=== PATIENT | male | born 1940 | race Asian ===

== ENCOUNTER 2016-04-13 08:18 | Inpatient (IN) | payer OTHER ==
[2016-04-13] MEDS ORDERED: ALBUTEROL SO4 2.5/IPRATROPIUM 0.5 INH SOL 3 ML VIAL.NEB. NEB ONE ×3 (08:53→10:50)
[2016-04-13] MEDS ORDERED: methylPREDNISolone NA SUCC 125 MG/2 ML VIAL IVPB ONE (08:54)
--- NOTE | 2016-04-13 08:55 | PDOC ---
History of Present Illness <Trish Mayers - Last Filed: 04/13/16 10:50> - General History Source: Patient Exam Limitations: Language Barrier (translation provided by his benito becerra) - History of Present Illness Initial Comments: 04/13/16 08:54 76y M hx of CAD s/p CABG, asthma/copd, sent by PMD for evalutaion of cough. The pt states he has been coughing for 2 weeks, associated with mild nasal congestion, cough productive of whish sputum with yellow specks. Pt endorses mild substernal chest and b/l rib pain when he coughs. Pt denies any body aches , fever/chills, n/v, diarphoesis, abd pain, back pain, leg swelling, hemoptysis. No recent travel/sick contacts. +remote smoking history. pt saw his PMD yesterday who gave him rx for azithromycin pt states he has been using his albuterol every hour without significant relief <Topher Shotr - Last Filed: 04/13/16 13:13> - General Chief Complaint: Respiratory Stated Complaint: ASTHMA (PCP SENT) Time Seen by Provider: 04/13/16 08:40 Past History <Trish Mayers - Last Filed: 04/13/16 10:50> - Past Medical History Anemia: Yes Asthma: No Cancer: No Cardiac Disorders: Yes (CAD CABG 09/2012) CVA: No COPD: Yes CHF: No Dementia: No Diabetes: No GI Disorders: No Disorders: Yes (BPH) HTN: Yes Hypercholesterolemia: Yes Liver Disease: No Seizures: No Thyroid Disease: No - Surgical History Appendectomy: Yes Cardiac Surgery: Yes (CABG/ BYPASS SURGERY) - Immunization History Immunization Up to Date: Yes - Psycho/Social/Smoking Cessation Hx Anxiety: No Suicidal Ideation: No Smoking History: Former smoker Have you smoked in the past 12 months: Yes If you are a former smoker, when did you quit?: 10 months ago Information on smoking cessation initiated: No Hx Alcohol Use: No Drug/Substance Use Hx: No Substance Use Type: None Hx Substance Use Treatment: No <Topher Short - Last Filed: 04/13/16 13:13> - Past Medical History Allergies/Adverse Reactions: Allergies Allergy/AdvReac Type Severity Reaction Status Date / Time No Known Drug Allergies Allergy Verified 04/13/16 08:19 Home Medications: Ambulatory Orders Atorvastatin Ca [Lipitor] 20 mg PO DAILY 06/05/13 Losartan/Hydrochlorothiazide [Losartan-Hctz 50-12.5 mg Tab] 50 mg PO DAILY 06/05 Metoprolol Tartrate [Lopressor -] 25 mg PO BID 06/05/13 Albuterol Sulfate Inhaler - [Ventolin Hfa Inhaler -] 1 - 2 inh PO QID PRN Aspirin [ASA -] 81 mg PO DAILY 04/13/16 Fluticasone/Salmeterol [Advair 250-50 Diskus] 1 each IH PRN 04/13/16 Tiotropium [place] [Spiriva] 1 inh PO BID 04/13/16 Review of Systems - Review of Systems Able to Perform ROS?: Yes Comments:: 04/13/16 08:58 Constitutional - no reported Fever, Chills, weakness, HEENT: +nasal congestion no reported vision changes, sore throat Respiratory: +cough, sob, no reported hemoptysis Cardiac: +chest pain, no reported palpitations, light headedness, leg swelling Abd/GI: no reported abd pain, nausea, vomiting, blood per rectum, melena, diarrhea : no reported dysuria, frequency, discharge Musculskelatal - no reported back pain, joint swelling skin - no reported bruising, erythema, rash neurological: no reported headache, numbness, focal weakness, tingling, ataxia, weakness hematologic: no reported anemia, easy bruising, easy bleeding <Topher Short - Last Filed: 04/13/16 13:13> *Physical Exam - Vital Signs Last Vital Signs Temp Pulse Resp BP Pulse Ox 97.8 F 88 26 H 133/71 100 04/13/16 08:19 04/13/16 08:19 04/13/16 08:19 04/13/16 08:19 04/13/16 09:00 <Trish Mayers - Last Filed: 04/13/16 10:50> - Vital Signs Last Vital Signs Temp Pulse Resp BP Pulse Ox 97.8 F 88 26 H 133/71 95 04/13/16 08:19 04/13/16 08:19 04/13/16 08:19 04/13/16 08:19 04/13/16 08:19 - Physical Exam Comments: 04/13/16 09:00 GENERAL: The patient is awake, alert, and fully oriented, Nontoxic - in no acute distress. HEAD: Normocephalic, atraumatic. EYES: extraocular movements intact, sclera anicteric, conjunctiva clear. ENT: Normal voice, Moist mucous membranes. NECK: Normal range of motion, supple LUNGS: moderate respiratory distress, mildly tachypneic, diffuse wheezing, good air movement HEART: Regular rate and rhythm, normal S1 and S2 without murmur, rub or gallop. ABDOMEN: Soft, nontender, normoactive bowel sounds. No guarding, no rebound. No CVA tenderness EXTREMITIES: Normal range of motion, no edema, or calf tenderness, NEUROLOGICAL: No facial assymetry, Normal speech, moving all 4 extremities spontaneously PSYCH: Normal mood, normal affect. SKIN: Warm, Dry, normal turgor <Han,Topher - Last Filed: 04/13/16 13:13> Heart Score/ECG Review - History History: Slightly suspicious - Electrocardiogram EKG: Normal - Age Age: >/= 65 - Risk Factors Risk Factors Heart Score: Yes Hx Hypercholesterolemia, Yes Hx Hypertension, Yes Positive family hx of cardiac disease Based on the list above the patient has:: >/=3 risk factors or Hx atherosclerotic disease - Troponin Troponin: </= normal limit - Score Heart Score - Total: 4 - ECG Impressions Comment:: 04/13/16 11:49 Twelve-lead EKG was performed and reviewed by me. There is normal sinus rhythm with a normal rate. Rate of 79 The axis is normal. The intervals are normal. There is normal R wave progression There are no ST or T wave abnormalities. Impression: Normal twelve-lead EKG <Han,Topher - Last Filed: 04/13/16 13:13> ED Treatment Course - LABORATORY CBC & Chemistry Diagram: 04/13/16 09:15 04/13/16 09:15 - ADDITIONAL ORDERS Additional order review: Laboratory Results 04/13/16 04/13/16 04/13/16 09:15 09:15 09:15 Sodium 144 Potassium 4.1 Chloride 111 H Carbon Dioxide 27 Anion Gap 6 L BUN 19 H D Creatinine 1.2 D Creat Clearance w eGFR 58.71 Random Glucose 92 Calcium 9.1 Total Bilirubin 0.4 AST 18 D ALT 20 D Alkaline Phosphatase 82 D Creatine Kinase 205 D Creatine Kinase Index 2.1 CK-MB (CK-2) 4.414 H CK-MB (CK-2) Rel Index Cancelled Troponin I < 0.02 Total Protein 7.0 D Albumin 3.9 D 04/13/16 08:00 Influenza Types A,B Antigen (GUILLERMO) - Final Nasopharyngeal Swab - Final 04/13/16 09:15 RBC 3.79 L MCV 99.9 H MCHC 33.1 RDW 14.2 MPV 8.9 Neutrophils % 55.9 Lymphocytes % 15.6 D Monocytes % 8.8 Eosinophils % 18.8 H Basophils % 0.9 - RADIOLOGY Radiograph Interpretation: 04/13/16 10:50 Chest x-ray PA and lateral. Since 03/07/2014, the cardiac silhouette remains within normal limits in size. Patient status post median sternotomy. Right apical pleural thickening again seen with interval increase interstitial scarring and thickening in the right lung apex since see prior examination. Minimal blunting of the right costophrenic angle again seen. Mediastinum and visualized osseous structures appear intact IMPRESSION: Interval increase interstitial scarring and atelectatic changes in the right lung apex since the prior exam without definite infiltrates. Correlate clinically for further evaluation and follow-up. Reported By: Chinedu Solis MD 04/13/16 1020 - Medications Given in the ED: ED Medications Discontinued Medications Generic Name Dose Route Start Last Admin Trade Name Freq PRN Reason Stop Dose Admin Albuterol/Ipratropium 1 amp 04/13/16 08:53 04/13/16 09:17 Duoneb - NEB 04/13/16 08:54 1 amp ONCE ONE Administration Methylprednisolone Sodium Succinate 125 mg 04/13/16 08:54 04/13/16 09:17 Solu-Medrol - IVPB 04/13/16 08:55 125 mg ONCE ONE Administration <Trish Mayers - Last Filed: 04/13/16 10:50> - LABORATORY CBC & Chemistry Diagram: 04/13/16 09:15 04/13/16 09:15 <Topher Short - Last Filed: 04/13/16 13:13> Medical Decision Making - Medical Decision Making 04/13/16 09:04 76-year-old gentleman history of CAD, asthma/COPD presenting with 2 weeks of cough, nasal congestion productive of whitish sputum flecked with yellow spots, without any fevers, chills - was seen by PMD yesterday and referred to the emergency department for evaluation. Suspect asthma exacerbated by URI/influenza Will check some basic blood work, chest x-ray will treat the patient symptomatically with steroids, Will reassess 04/13/16 13:12 pt admitted for asthma exacerbation pt still hypoxic to low 90s still diffuse wheezing - in no distress cxr without any infiltrates case d/w dr. Sheldon barragan with admission stable for admissio to med/surg Case discussed in detail with admitting physician including history, physical exam and ancillary studies. Admitting physician has assumed care for the patient, will follow all pending diagnostics and will complete the evaluation and treatment. <Topher Short - Last Filed: 04/13/16 13:13> *DC/Admit/Observation/Transfer <Trish Mayers - Last Filed: 04/13/16 10:50> - Discharge Dispostion Admit: Yes <Topher Short - Last Filed: 04/13/16 13:13> Diagnosis at time of Disposition: Asthma exacerbation - Discharge Dispostion Condition at time of disposition: Stable - Referrals
[2016-04-13] MEDS ORDERED: methylPREDNISolone NA SUCC 125 MG/2 ML VIAL ONE (09:03)
[2016-04-13 09:52] LABS: BASOPHIL 0.9 % (0-2.0); EOSINOPHIL 18.8 % (0-4.5); MCHC 33.1 g/dl (32.0-35.9); MEAN CELL VOLUME 99.9 fl (80-96); MEAN PLT VOLUME 8.9 fl (7.5-11.1); NEUTROPHILS 55.9 % (42.8-82.8); PLATELET COUNT 174 K/MM3 (134-434); RDW 14.2 % (11.9-15.9); WHITE BLOOD COUNT 6.7 K/mm3 (4.0-10.0)
[2016-04-13 10:00] LABS: ALBUMIN 3.9 g/dl (3.4-5.0); BILIRUBIN,TOTAL 0.4 mg/dL (0.2-1.0); CALCIUM 9.1 mg/dL (8.5-10.1); CREATININE 1.2 mg/dL (0.7-1.3); TROPONIN I < 0.02 ng/ml (0.00-0.05)
[2016-04-13] MEDS ORDERED: MAGNESIUM SULF 50% (8.12 MEQ/2 ML-1 GM VIAL) IVPB ONE (11:12)
[2016-04-13] MEDS ORDERED: MAGNESIUM SULF 50% (8.12 MEQ/2 ML-1 GM VIAL) ONE (11:15)
[2016-04-13] MEDS ORDERED: IPRATROPIUM BR 0.02% 0.5 MG/2.5 ML VIAL.NEB. NEB PRN (13:05)
--- NOTE | 2016-04-13 13:21 | HP ---
Admitting History and Physical - Admission Chief Complaint: dyspnea History of Present Illness: 76 year old male with a PMHx CAD s/p CABG, HTN, HLD, asthma presents with a 1-2 week history of progressively worsening shortness of breath and wheezing. He went to PCP, Dr. Blackburn in the [place], a few days ago and was given zpak. He took one dose yesterday and was requiring his albuterol every hour. He is coughing up white sputum, afebrile, no sick contacts. No chest pain, abdominal pain, n/v/ d, fever/chills. No recent travel. He does have some rib pain when coughing. History Source: Patient, Family Member Limitations to Obtaining History: Language Barrier - Past Medical History Cardiovascular: Yes: CAD, HTN, Hyperlipdemia Pulmonary: Yes: Asthma - Past Surgical History Past Surgical History: Yes: Appendectomy, CABG, Stent - Smoking History Smoking history: Former smoker Have you smoked in the past 12 months: Yes If you are a former smoker, when did you quit?: 10 months ago - Alcohol/Substance Use Hx Alcohol Use: No History of Substance Use: reports: None - Social History Usual Living Arrangement: Yes: With Spouse ADL: Independent Occupation: retired History of Recent Travel: No Home Medications - Allergies Allergies/Adverse Reactions: Allergies Allergy/AdvReac Type Severity Reaction Status Date / Time No Known Drug Allergies Allergy Verified 04/13/16 08:19 - Home Medications Home Medications: Ambulatory Orders Atorvastatin Ca [Lipitor] 20 mg PO DAILY 06/05/13 Losartan/Hydrochlorothiazide [Losartan-Hctz 50-12.5 mg Tab] 50 mg PO DAILY 06/05 Metoprolol Tartrate [Lopressor -] 25 mg PO BID 06/05/13 Albuterol Sulfate Inhaler - [Ventolin Hfa Inhaler -] 1 - 2 inh PO QID PRN Aspirin [ASA -] 81 mg PO DAILY 04/13/16 Fluticasone/Salmeterol [Advair 250-50 Diskus] 1 each IH PRN 04/13/16 Tiotropium [place] [Spiriva] 1 inh PO BID 04/13/16 Family Disease History - Family Disease History Family History: Denies Review of Systems - Review of Systems Constitutional: reports: No Symptoms Eyes: reports: No Symptoms HENT: reports: No Symptoms Neck: reports: No Symptoms Cardiovascular: reports: No Symptoms Respiratory: reports: Cough, SOB, SOB on Exertion, Wheezing Gastrointestinal: reports: No Symptoms Genitourinary: reports: No Symptoms Musculoskeletal: reports: No Symptoms Integumentary: reports: No Symptoms Neurological: reports: No Symptoms Endocrine: reports: No Symptoms Hematology/Lymphatic: reports: No Symptoms Psychiatric: reports: No Symptoms Physical Examination Vital Signs: Vital Signs Temperature 97.8 F 04/13/16 08:19 Pulse Rate 88 04/13/16 08:19 Respiratory Rate 26 H 04/13/16 08:19 Blood Pressure 133/71 04/13/16 08:19 O2 Sat by Pulse Oximetry (%) 100 04/13/16 09:00 Constitutional: Yes: Well Nourished, No Distress, Calm HENT: Yes: WNL, Atraumatic, Normocephalic Neck: Yes: WNL, Supple, Trachea Midline Cardiovascular: Yes: WNL, Regular Rate and Rhythm Respiratory: Yes: Cough, Poor Air Entry, SOB on Exertion, Wheezes. No: Accessory Muscle Use Gastrointestinal: Yes: WNL, Normal Bowel Sounds, Soft Musculoskeletal: Yes: WNL Extremities: Yes: WNL Edema: No Peripheral Pulses WNL: Yes ...Motor Strength: WNL Labs: Laboratory Tests 04/13/16 04/13/16 04/13/16 09:15 09:15 09:15 WBC 6.7 D RBC 3.79 L Hgb 12.5 Hct 37.8 MCV 99.9 H MCHC 33.1 RDW 14.2 Plt Count 174 MPV 8.9 Neutrophils % 55.9 Lymphocytes % 15.6 D Monocytes % 8.8 Eosinophils % 18.8 H Basophils % 0.9 Sodium 144 Potassium 4.1 Chloride 111 H Carbon Dioxide 27 Anion Gap 6 L BUN 19 H D Creatinine 1.2 D Creat Clearance w eGFR 58.71 Random Glucose 92 Calcium 9.1 Total Bilirubin 0.4 AST 18 D ALT 20 D Alkaline Phosphatase 82 D Creatine Kinase 205 D Creatine Kinase Index 2.1 CK-MB (CK-2) 4.414 H CK-MB (CK-2) Rel Index Troponin I < 0.02 Total Protein 7.0 D Albumin 3.9 D 04/13/16 09:15 WBC RBC Hgb Hct MCV MCHC RDW Plt Count MPV Neutrophils % Lymphocytes % Monocytes % Eosinophils % Basophils % Sodium Potassium Chloride Carbon Dioxide Anion Gap BUN Creatinine Creat Clearance w eGFR Random Glucose Calcium Total Bilirubin AST ALT Alkaline Phosphatase Creatine Kinase Creatine Kinase Index CK-MB (CK-2) CK-MB (CK-2) Rel Index Cancelled Troponin I Total Protein Albumin Imaging - Results Chest X-ray: Report Reviewed, Image Reviewed EKG: Report Reviewed, Image Reviewed (NSR, no ischemic changes) Problem List - Problems (1) Asthma exacerbation Code(s): J45.901 - UNSPECIFIED ASTHMA WITH (ACUTE) EXACERBATION Assessment/Plan 76 year old male with a PMHx CAD s/p CABG, HTN, HLD, asthma presents with progressively worsening dyspnea and cough. 1) Asthma exacerbation -place on IV steroids -inhaled bronchodilators -mucolytics/expectorants -c/w azithromycin -check peak flow -pulm eval -flu negative 2) CAD s/p CABG-resume asa/statin/keesha/bb 3) HTN-resume home meds 4) HLD-resume statin 5) DVT ppx-heparin subq
[2016-04-13] MEDS ORDERED: ALBUTEROL SO4 0.083% IH SOL 2.5 MG/3 ML VIAL.NEB. NEB ONE (14:00)
[2016-04-13] MEDS: ALBUTEROL SO4 0.083% IH SOL 2.5 MG/3 ML VIAL.NEB. NEB SCH ×3 (14:01→23:01)
[2016-04-13] MEDS: AZITHROMYCIN IVPB 250 MG in DEXTROSE 5%-WATER - 250 ML IVPB SCH (15:34)
--- NOTE | 2016-04-13 16:15 | EKG ---
Test Reason : Blood Pressure : / mmHG Vent. Rate : 079 BPM Atrial Rate : 079 BPM P-R Int : 158 ms QRS Dur : 086 ms QT Int : 382 ms P-R-T Axes : 076 034 037 degrees QTc Int : 438 ms NORMAL SINUS RHYTHM NORMAL ECG WHEN COMPARED WITH ECG OF 07-MAR-2014 15:45, VENT. RATE HAS INCREASED BY 28 BPM Confirmed by ORLY BA MD ([id number]) on 04/13/2016 4:15:06 PM Referred By: Confirmed By:ORLY BA MD
[2016-04-13] MEDS: guaiFENesin/D-METHORPHAN HB 10 ML UNIT-DOSE CUPS PO PRN (17:13)
[2016-04-13] MEDS: methylPREDNISolone NA SUCC 40 MG/1 ML VIAL IVPB SCH (17:13)
[2016-04-13 17:36] VITALS: BMI 23.1
[2016-04-13] MEDS ORDERED: PNEUMOC 13-VAL CONJ-DIP CRM/PF 0.5 ML DISP.SYRIN IM ONE (17:36)
[2016-04-13] MEDS ORDERED: PNEUMOCOCCAL 23 VACCINE 0.5 ML VIAL IM ONE (17:45)
[2016-04-13] MEDS: HEPARIN NA (PORCINE) 5,000 UNITS/ML 1ML VIAL SQ SCH (21:50)
[2016-04-13] MEDS: ATORVASTATIN CA 20 MG TABLET (FP) PO SCH (21:50)
[2016-04-13] MEDS: METOPROLOL TARTRATE 25 MG TABLET (FP) PO SCH (21:50)
[2016-04-14] MEDS: methylPREDNISolone NA SUCC 40 MG/1 ML VIAL IVPB SCH ×4 (01:45→21:57)
[2016-04-14] MEDS: ALBUTEROL SO4 0.083% IH SOL 2.5 MG/3 ML VIAL.NEB. NEB SCH ×2 (06:22→11:54)
[2016-04-14 08:03] LABS: BASOPHIL 0.1 % (0-2.0); MCH 32.8 pg (25.7-33.7); MCHC 32.9 g/dl (32.0-35.9); MEAN CELL VOLUME 99.6 fl (80-96); MEAN PLT VOLUME 9.2 fl (7.5-11.1); NEUTROPHILS 92.9 % (42.8-82.8); PLATELET COUNT 163 K/MM3 (134-434); WHITE BLOOD COUNT 11.8 K/mm3 (4.0-10.0)
[2016-04-14 08:22] LABS: ALBUMIN 3.8 g/dl (3.4-5.0); ANION GAP 10 (8-16); BILIRUBIN,TOTAL 0.5 mg/dL (0.2-1.0); CALCIUM 8.9 mg/dL (8.5-10.1); CO2 25 mmol/L (21-32); CREATININE 1.1 mg/dL (0.7-1.3); GLUCOSE,RANDOM 135 mg/dL (74-106); SGOT/AST 15 U/L (15-37); SGPT/ALT 20 U/L (12-78); TOT PROT 7.1 g/dl (6.4-8.2)
[2016-04-14 08:23] LABS: ALK PHOS 70 U/L (45-117)
[2016-04-14] MEDS ORDERED: PT OWN MED DRAWER 7, Y5N ONE (08:59)
[2016-04-14] MEDS: ASPIRIN 81 MG CHEWABLE TABLETS PO SCH (09:19)
[2016-04-14] MEDS: HEPARIN NA (PORCINE) 5,000 UNITS/ML 1ML VIAL SQ SCH ×2 (09:19→21:57)
[2016-04-14] MEDS: METOPROLOL TARTRATE 25 MG TABLET (FP) PO SCH ×2 (09:19→21:58)
[2016-04-14] MEDS: LOSARTAN 50MG/HCTZ 12.5MG 1 TAB (FP) PO SCH (09:19)
[2016-04-14] MEDS: AZITHROMYCIN IVPB 250 MG in DEXTROSE 5%-WATER - 250 ML IVPB SCH (09:20)
--- NOTE | 2016-04-14 13:14 | PN ---
Progress Note (short form) - Note Progress Note: PULMONARY CONSULTATION DICTATED 04/14/16 IMP COPD EXACERBATION URI R APICAL THICKENING ASHD S/P CABG HLD PLAN IV STEROIDS INHALED BRONCHODILATORS SUPPLEMENTAL O2 ANTIBIOTICS CHEST CT PFTS OUTPATIENT DR CARTAGENA Problem List - Problems (1) Asthma with COPD with exacerbation Code(s): J44.1 - CHRONIC OBSTRUCTIVE PULMONARY DISEASE W (ACUTE) EXACERBATION J45.901 - UNSPECIFIED ASTHMA WITH (ACUTE) EXACERBATION (2) ASHD (arteriosclerotic heart disease) Code(s): I25.10 - ATHSCL HEART DISEASE OF [place] CORONARY ARTERY W/O ANG PCTRS (3) S/P CABG (coronary artery bypass graft) Code(s): Z95.1 - PRESENCE OF AORTOCORONARY BYPASS GRAFT (4) HLD (hyperlipidemia) Code(s): E78.5 - HYPERLIPIDEMIA, UNSPECIFIED
--- NOTE | 2016-04-14 14:28 | CONS ---
DATE OF CONSULTATION: 04/14/2016 REFERRING PHYSICIAN: Alicia Webster MD HISTORY: History is obtained from the chart as well as patient's son. The patient is a 76-year-old Spanish male with past medical history of ASHD status post coronary bypass graft 1 year ago at [facility], hypertension, hyperlipidemia; longstanding history of tobacco use, quit approximately 10 months ago; asthma, COPD, admitted to [facility] complaining of increasing shortness of breath, cough, and bronchospasm. The patient apparently has 1- to 2-week history of becoming progressively more short of breath and wheezing. He went to his PMD a few days prior to this admission and was given a Z-Wilver. Apparently he took a dose 1 day prior to admission and it did not offer any improvement. He was still using his Albuterol inhaler every hour without any improvement. He also complained of cough productive of white sputum. He denied any fevers, chills, nausea, vomiting, diaphoresis. Denied any chest pain or palpitations. He presented to the emergency room with the above. In the ER he was felt to have acute asthma, COPD exacerbation. He was started on steroids and bronchodilators and transferred to the floor for further management. He denies any history of weight loss or night sweats. He does have a history of pneumonia during childhood, unsure which lung. Of note is on chest x-ray he is noted to have some apical scarring of the right upper lobe. PAST MEDICAL HISTORY: Again includes COPD, asthma, hyperlipidemia, hypertension, ASHD status post CABG 1 year ago. SOCIAL HISTORY: Born in [place], moved to the [place] greater than 20 years ago. Retired auto driver. History of tobacco use approximately 1 pack per day. He quit 10 months ago. MEDICATIONS PRIOR TO ADMISSION: Include Lipitor, losartan, Lopressor, albuterol, aspirin, Advair, and Spiriva. CURRENT MEDICATIONS: Include Solu-Medrol, Hyzaar, Zithromax, albuterol, Lopressor, Atrovent solution, Lipitor, and aspirin. REVIEW OF SYSTEMS: Positive cough. Positive bronchospasm. No chest pain. No palpitations. Positive dyspnea. No fevers, no chills, no nausea, no vomiting, no hemoptysis. PHYSICAL EXAMINATION: General: The patient is a well-developed, well-nourished male, awake, alert, in no acute distress. Vital Signs: He is afebrile. Blood pressure 129/ . Respiratory rate is 18, O2 saturation 95% on 2 L. HEENT: Head is normocephalic, atraumatic. Neck is supple. Heart: Regular. Normal S1, S2. Chest: Bilateral wheezes. Abdomen: Soft. Bowel sounds are positive. Extremities: No cyanosis or edema. LABORATORY: BUN 25, creatinine 1.1. WBC is 11.8, hemoglobin 12.6, hematocrit 38.3, with a platelet count of 163,000. There are 92 polys, 5 lymphs, and 1 mono. Chest x-ray: Increased interstitial scarring. Atelectatic changes of right apex since previous exam in 2013. IMPRESSION: 1. Chronic obstructive pulmonary disease with acute exacerbation. 2. Arteriosclerotic heart disease status post coronary artery bypass graft. 3. Right apical thickening. 4. Hyperlipidemia. PLAN: IV steroids, inhaled bronchodilators, antibiotic therapy, CT scan of the chest, supplemental O2. Check pulse oximetry prior to discharge to determine whether the patient requires home O2. PFTs as outpatient. RUBY CARTAGENA M.D. [id number]
[2016-04-14] MEDS: BUDESONIDE/FORMETEROL FUMARATE 160/4.5 mcg INHALER IH SCH ×2 (17:23→22:00)
[2016-04-14] MEDS: TIOTROPIUM BROMIDE 18 MCG/INH (DEVICE W/ 5 CAPSULES) IH SCH (17:24)
[2016-04-14] MEDS: ALBUTEROL SO4 0.083% IH SOL 2.5 MG/3 ML VIAL.NEB. NEB PRN ×2 (18:33→23:15)
--- NOTE | 2016-04-14 21:06 | PN ---
Progress Note, Physician - Current Medication List Current Medications: Active Medications Albuterol Sulfate (Ventolin 0.083% Nebulizer Soln -) 1 amp NEB Q4H PRN PRN Reason: SHORT OF BREATH/WHEEZING Last Admin: 04/14/16 18:33 Dose: 1 amp Aspirin (Asa -) 81 mg PO DAILY [facility] Last Admin: 04/14/16 09:19 Dose: 81 mg Atorvastatin Calcium (Lipitor -) 20 mg PO HS [facility] Last Admin: 04/13/16 21:50 Dose: 20 mg Budesonide/Formoterol Fumarate (Symbicort 160/4.5mcg -) 2 puff IH BID [facility] Last Admin: 04/14/16 17:23 Dose: 2 inh Guaifenesin (Robitussin Dm -) 10 ml PO Q6H PRN PRN Reason: COUGH Last Admin: 04/13/16 17:13 Dose: 10 ml HCTZ/Losartan Potassium (Hyzaar -) 1 tab PO DAILY [facility] Last Admin: 04/14/16 09:19 Dose: 1 tab Heparin Sodium (Porcine) (Heparin -) 5,000 unit SQ BID [facility] Last Admin: 04/14/16 09:19 Dose: 5,000 unit Azithromycin 250 mg/ Dextrose 250 mls @ 250 mls/hr IVPB DAILY [facility] Last Admin: 04/14/16 09:20 Dose: 250 mls/hr Methylprednisolone Sodium Succinate (Solu-Medrol -) 40 mg IVPB Q6H-IV [facility] Last Admin: 04/14/16 15:55 Dose: 40 mg Metoprolol Tartrate (Lopressor -) 25 mg PO BID [facility] Last Admin: 04/14/16 09:19 Dose: 25 mg Tiotropium [place] (Spiriva -) 1 puff IH DAILY [facility] Last Admin: 04/14/16 17:24 Dose: 1 inh - Objective Vital Signs: Vital Signs Temperature 97.9 F 04/14/16 17:47 Pulse Rate 81 04/14/16 17:47 Respiratory Rate 20 04/14/16 17:47 Blood Pressure 124/78 04/14/16 17:47 O2 Sat by Pulse Oximetry (%) 97 04/14/16 09:00 Labs: CBC, BMP 04/14/16 06:40 04/14/16 06:40
[2016-04-14] MEDS: ATORVASTATIN CA 20 MG TABLET (FP) PO SCH (21:58)
[2016-04-15] MEDS: methylPREDNISolone NA SUCC 40 MG/1 ML VIAL IVPB SCH ×3 (02:35→17:23)
[2016-04-15] MEDS ORDERED: PT OWN MED DRAWER 7, Y5N ONE (09:17)
[2016-04-15] MEDS: AZITHROMYCIN IVPB 250 MG in DEXTROSE 5%-WATER - 250 ML IVPB SCH (09:26)
[2016-04-15] MEDS: METOPROLOL TARTRATE 25 MG TABLET (FP) PO SCH ×2 (09:26→21:01)
[2016-04-15] MEDS: HEPARIN NA (PORCINE) 5,000 UNITS/ML 1ML VIAL SQ SCH ×2 (09:26→21:01)
[2016-04-15] MEDS: ASPIRIN 81 MG CHEWABLE TABLETS PO SCH (09:27)
[2016-04-15] MEDS: LOSARTAN 50MG/HCTZ 12.5MG 1 TAB (FP) PO SCH (09:27)
[2016-04-15] MEDS: BUDESONIDE/FORMETEROL FUMARATE 160/4.5 mcg INHALER IH SCH ×2 (09:28→21:01)
[2016-04-15] MEDS: TIOTROPIUM BROMIDE 18 MCG/INH (DEVICE W/ 5 CAPSULES) IH SCH (09:28)
--- NOTE | 2016-04-15 11:18 | PN ---
Progress Note (short form) - Note Progress Note: Still with congested cough. No CP. at the bedside. She pointed out a slight redness of his forehead. No hives or rash. Intake & Output 04/12/16 04/13/16 04/14/16 04/15/16 23:59 23:59 23:59 23:59 Intake Total 480 800 100 Balance 480 800 100 Weight 147 lb 11.355 oz Last Vital Signs Temp Pulse Resp BP Pulse Ox 97.6 F 72 20 118/67 98 04/15/16 06:00 04/15/16 06:00 04/15/16 06:00 04/15/16 06:00 04/14/16 21:00 Active Medications Albuterol Sulfate (Ventolin 0.083% Nebulizer Soln -) 1 amp NEB Q4H PRN PRN Reason: SHORT OF BREATH/WHEEZING Last Admin: 04/14/16 23:15 Dose: 1 amp Aspirin (Asa -) 81 mg PO DAILY [facility] Last Admin: 04/15/16 09:27 Dose: 81 mg Atorvastatin Calcium (Lipitor -) 20 mg PO HS [facility] Last Admin: 04/14/16 21:58 Dose: 20 mg Budesonide/Formoterol Fumarate (Symbicort 160/4.5mcg -) 2 puff IH BID [facility] Last Admin: 04/15/16 09:28 Dose: 2 inh Guaifenesin (Robitussin Dm -) 10 ml PO Q6H PRN PRN Reason: COUGH Last Admin: 04/13/16 17:13 Dose: 10 ml HCTZ/Losartan Potassium (Hyzaar -) 1 tab PO DAILY [facility] Last Admin: 04/15/16 09:27 Dose: 1 tab Heparin Sodium (Porcine) (Heparin -) 5,000 unit SQ BID [facility] Last Admin: 04/15/16 09:26 Dose: 5,000 unit Azithromycin 250 mg/ Dextrose 250 mls @ 250 mls/hr IVPB DAILY [facility] Last Admin: 04/15/16 09:26 Dose: 250 mls/hr Methylprednisolone Sodium Succinate (Solu-Medrol -) 40 mg IVPB Q6H-IV [facility] Last Admin: 04/15/16 09:26 Dose: 40 mg Metoprolol Tartrate (Lopressor -) 25 mg PO BID [facility] Last Admin: 04/15/16 09:26 Dose: 25 mg Tiotropium [place] (Spiriva -) 1 puff IH DAILY [facility] Last Admin: 04/15/16 09:28 Dose: 1 inh Constitutional: Yes: Well Nourished, No Distress, NAD HENT: Yes: WNL, Atraumatic, Normocephalic Neck: Yes: WNL, Supple, Trachea Midline Cardiovascular: Yes: WNL, Regular Rate and Rhythm Respiratory: Yes: Cough, Scattered basilar rhonchi, few scattered Wheezes. No: Accessory Muscle Use Gastrointestinal: Yes: WNL, Normal Bowel Sounds, Soft Musculoskeletal: Yes: WNL Extremities: Yes: WNL Edema: No Peripheral Pulses WNL: Yes ...Motor Strength: WNL Labs: Problem List - Problems (1) Asthma exacerbation Code(s): J45.901 - UNSPECIFIED ASTHMA WITH (ACUTE) EXACERBATION Assessment/Plan 76 year old male with a PMHx CAD s/p CABG, HTN, HLD, asthma presents with progressively worsening dyspnea and cough. 1) Asthma exacerbation -place on IV steroids -inhaled bronchodilators -mucolytics/expectorants -c/w azithromycin -check peak flow -pulm eval -flu negative 2) CAD s/p CABG-resume asa/statin/keesha/bb 3) HTN-resume home meds 4) HLD-resume statin 5) DVT ppx-heparin subq Problem List - Problems (1) ASHD (arteriosclerotic heart disease) Code(s): I25.10 - ATHSCL HEART DISEASE OF [place] CORONARY ARTERY W/O ANG PCTRS (2) HLD (hyperlipidemia) Code(s): E78.5 - HYPERLIPIDEMIA, UNSPECIFIED (3) S/P CABG (coronary artery bypass graft) Code(s): Z95.1 - PRESENCE OF AORTOCORONARY BYPASS GRAFT (4) Pneumonia Code(s): J18.9 - PNEUMONIA, UNSPECIFIED ORGANISM Qualifiers: Pneumonia type: due to unspecified organism Laterality: right Lung location: lower lobe of lung Qualified Code(s): J18.9 - Pneumonia, unspecified organism
[2016-04-15] MEDS: ALBUTEROL SO4 0.083% IH SOL 2.5 MG/3 ML VIAL.NEB. NEB SCH ×2 (14:26→21:41)
[2016-04-15] MEDS: LEVOFLOXACIN 500 MG IVPB 100 ML IVPB SCH (14:31)
[2016-04-15] MEDS: ATORVASTATIN CA 20 MG TABLET (FP) PO SCH (21:01)
--- NOTE | 2016-04-15 22:56 | PN ---
Progress Note, Physician History of Present Illness: No new complaints - Current Medication List Current Medications: Active Medications Albuterol Sulfate (Ventolin 0.083% Nebulizer Soln -) 1 amp NEB Q4H PRN PRN Reason: SHORT OF BREATH/WHEEZING Last Admin: 04/14/16 23:15 Dose: 1 amp Albuterol Sulfate (Ventolin 0.083% Nebulizer Soln -) 1 amp NEB TIDR [facility] Last Admin: 04/15/16 21:41 Dose: 1 amp Aspirin (Asa -) 81 mg PO DAILY [facility] Last Admin: 04/15/16 09:27 Dose: 81 mg Atorvastatin Calcium (Lipitor -) 20 mg PO HS [facility] Last Admin: 04/15/16 21:01 Dose: 20 mg Budesonide/Formoterol Fumarate (Symbicort 160/4.5mcg -) 2 puff IH BID [facility] Last Admin: 04/15/16 21:01 Dose: 2 inh Folic Acid (Folic Acid -) 1 mg PO DAILY [facility] Guaifenesin (Robitussin Dm -) 10 ml PO Q6H PRN PRN Reason: COUGH Last Admin: 04/13/16 17:13 Dose: 10 ml HCTZ/Losartan Potassium (Hyzaar -) 1 tab PO DAILY [facility] Last Admin: 04/15/16 09:27 Dose: 1 tab Heparin Sodium (Porcine) (Heparin -) 5,000 unit SQ BID [facility] Last Admin: 04/15/16 21:01 Dose: 5,000 unit Levofloxacin (Levaquin 500 Mg Premixed Ivpb -) 100 mls @ 100 mls/hr IVPB DAILY [facility] Last Admin: 04/15/16 14:31 Dose: 100 mls/hr Methylprednisolone Sodium Succinate (Solu-Medrol -) 60 mg IVPB Q8H-IV [facility] Last Admin: 04/15/16 17:23 Dose: 60 mg Metoprolol Tartrate (Lopressor -) 25 mg PO BID [facility] Last Admin: 04/15/16 21:01 Dose: 25 mg Tamsulosin HCl (Flomax -) 0.4 mg PO DAILY@0830 [facility] Tiotropium [place] (Spiriva -) 1 puff IH DAILY [facility] Last Admin: 04/15/16 09:28 Dose: 1 inh - Objective Vital Signs: Vital Signs Temperature 97.9 F 04/15/16 16:20 Pulse Rate 83 04/15/16 21:00 Respiratory Rate 20 04/15/16 21:00 Blood Pressure 135/75 04/15/16 21:00 O2 Sat by Pulse Oximetry (%) 97 04/15/16 20:10 Constitutional: Yes: No Distress Neck: Yes: Supple Cardiovascular: Yes: WNL, Regular Rate and Rhythm Respiratory: Yes: Wheezes Gastrointestinal: Yes: WNL, Normal Bowel Sounds, Soft Labs: CBC, BMP 04/14/16 06:40 04/14/16 06:40 Problem List - Problems (1) Asthma exacerbation Assessment/Plan: ?RLL infiltrate on ct scan chest Cont IV levaquin Pt on IV steroids Cont nebulizers/spireva Code(s): J45.901 - UNSPECIFIED ASTHMA WITH (ACUTE) EXACERBATION (2) HTN (hypertension) Assessment/Plan: BP stable Cont losarta-hctz/metoprolol Code(s): I10 - ESSENTIAL (PRIMARY) HYPERTENSION (3) HLD (hyperlipidemia) Assessment/Plan: Cont lipitor Code(s): E78.5 - HYPERLIPIDEMIA, UNSPECIFIED (4) BPH (benign prostatic hyperplasia) Assessment/Plan: Cont flomax Code(s): N40.0 - BENIGN PROSTATIC HYPERPLASIA WITHOUT LOWER URINRY TRACT SYMP (5) ASHD (arteriosclerotic heart disease) Code(s): I25.10 - ATHSCL HEART DISEASE OF [place] CORONARY ARTERY W/O ANG PCTRS
[2016-04-16] MEDS: methylPREDNISolone NA SUCC 40 MG/1 ML VIAL IVPB SCH ×3 (01:35→17:27)
[2016-04-16] MEDS: guaiFENesin/D-METHORPHAN HB 10 ML UNIT-DOSE CUPS PO PRN (02:00)
[2016-04-16] MEDS: ALBUTEROL SO4 0.083% IH SOL 2.5 MG/3 ML VIAL.NEB. NEB SCH ×3 (06:34→22:30)
[2016-04-16 08:29] LABS: MCHC 33.3 g/dl (32.0-35.9); MEAN CELL VOLUME 99.1 fl (80-96); MEAN PLT VOLUME 9.4 fl (7.5-11.1); NEUTROPHILS 91.4 % (42.8-82.8); PLATELET COUNT 166 K/MM3 (134-434); RDW 13.8 % (11.9-15.9); WHITE BLOOD COUNT 9.9 K/mm3 (4.0-10.0)
[2016-04-16] MEDS ORDERED: PT OWN MED DRAWER 7, Y5N ONE (09:09)
[2016-04-16] MEDS: FOLIC ACID 1 MG TABLET (FP) PO SCH (09:13)
[2016-04-16] MEDS: LOSARTAN 50MG/HCTZ 12.5MG 1 TAB (FP) PO SCH (09:13)
[2016-04-16] MEDS: METOPROLOL TARTRATE 25 MG TABLET (FP) PO SCH ×2 (09:14→22:17)
[2016-04-16] MEDS: ASPIRIN 81 MG CHEWABLE TABLETS PO SCH (09:14)
[2016-04-16] MEDS: TIOTROPIUM BROMIDE 18 MCG/INH (DEVICE W/ 5 CAPSULES) IH SCH (09:14)
[2016-04-16] MEDS: HEPARIN NA (PORCINE) 5,000 UNITS/ML 1ML VIAL SQ SCH ×2 (09:14→22:17)
[2016-04-16] MEDS: TAMSULOSIN HCL 0.4 MG CAP.ER.24H (FP) PO SCH (09:14)
[2016-04-16] MEDS: BUDESONIDE/FORMETEROL FUMARATE 160/4.5 mcg INHALER IH SCH ×2 (09:15→22:17)
[2016-04-16 09:26] LABS: ALBUMIN 3.6 g/dl (3.4-5.0); ALK PHOS 61 U/L (45-117); ANION GAP 5 (8-16); BILIRUBIN,TOTAL 0.3 mg/dL (0.2-1.0); CALCIUM 8.8 mg/dL (8.5-10.1); CO2 28 mmol/L (21-32); GLUCOSE,RANDOM 128 mg/dL (74-106); SGOT/AST 18 U/L (15-37); SGPT/ALT 24 U/L (12-78); TOT PROT 6.6 g/dl (6.4-8.2)
[2016-04-16] MEDS: LEVOFLOXACIN 500 MG IVPB 100 ML IVPB SCH (09:51)
--- NOTE | 2016-04-16 14:26 | PN ---
Progress Note, Physician History of Present Illness: pulmonary alert,feeling better,less congested - Current Medication List Current Medications: Active Medications Albuterol Sulfate (Ventolin 0.083% Nebulizer Soln -) 1 amp NEB Q4H PRN PRN Reason: SHORT OF BREATH/WHEEZING Last Admin: 04/14/16 23:15 Dose: 1 amp Albuterol Sulfate (Ventolin 0.083% Nebulizer Soln -) 1 amp NEB TIDR [facility] Last Admin: 04/16/16 14:10 Dose: 1 amp Aspirin (Asa -) 81 mg PO DAILY [facility] Last Admin: 04/16/16 09:14 Dose: 81 mg Atorvastatin Calcium (Lipitor -) 20 mg PO HS [facility] Last Admin: 04/15/16 21:01 Dose: 20 mg Budesonide/Formoterol Fumarate (Symbicort 160/4.5mcg -) 2 puff IH BID [facility] Last Admin: 04/16/16 09:15 Dose: 2 inh Folic Acid (Folic Acid -) 1 mg PO DAILY [facility] Last Admin: 04/16/16 09:13 Dose: 1 mg Guaifenesin (Robitussin Dm -) 10 ml PO Q6H PRN PRN Reason: COUGH Last Admin: 04/16/16 02:00 Dose: 10 ml HCTZ/Losartan Potassium (Hyzaar -) 1 tab PO DAILY [facility] Last Admin: 04/16/16 09:13 Dose: 1 tab Heparin Sodium (Porcine) (Heparin -) 5,000 unit SQ BID [facility] Last Admin: 04/16/16 09:14 Dose: 5,000 unit Levofloxacin (Levaquin 500 Mg Premixed Ivpb -) 100 mls @ 100 mls/hr IVPB DAILY [facility] Last Admin: 04/16/16 09:51 Dose: 100 mls/hr Methylprednisolone Sodium Succinate (Solu-Medrol -) 60 mg IVPB Q8H-IV [facility] Last Admin: 04/16/16 09:14 Dose: 60 mg Metoprolol Tartrate (Lopressor -) 25 mg PO BID [facility] Last Admin: 04/16/16 09:14 Dose: 25 mg Tamsulosin HCl (Flomax -) 0.4 mg PO DAILY@0830 [facility] Last Admin: 04/16/16 09:14 Dose: 0.4 mg Tiotropium [place] (Spiriva -) 1 puff IH DAILY [facility] Last Admin: 04/16/16 09:14 Dose: 1 inh - Objective Vital Signs: Vital Signs Temperature 98.9 F 04/16/16 08:00 Pulse Rate 80 04/16/16 10:48 Respiratory Rate 20 04/16/16 08:00 Blood Pressure 125/77 04/16/16 08:00 O2 Sat by Pulse Oximetry (%) 96 04/16/16 10:48 Constitutional: Yes: Well Nourished, Calm Eyes: Yes: WNL HENT: Yes: WNL Neck: Yes: WNL Cardiovascular: Yes: Regular Rate and Rhythm, S1, S2 Respiratory: Yes: Wheezes (bilateral wheezes) Gastrointestinal: Yes: Normal Bowel Sounds, Soft Extremities: Yes: WNL Edema: No Labs: CBC, BMP 04/16/16 07:15 04/16/16 07:15 - ....Imaging Cat Scan: Report Reviewed, Image Reviewed Problem List - Problems (1) Asthma with COPD with exacerbation Code(s): J44.1 - CHRONIC OBSTRUCTIVE PULMONARY DISEASE W (ACUTE) EXACERBATION J45.901 - UNSPECIFIED ASTHMA WITH (ACUTE) EXACERBATION (2) ASHD (arteriosclerotic heart disease) Code(s): I25.10 - ATHSCL HEART DISEASE OF [place] CORONARY ARTERY W/O ANG PCTRS (3) S/P CABG (coronary artery bypass graft) Code(s): Z95.1 - PRESENCE OF AORTOCORONARY BYPASS GRAFT (4) HLD (hyperlipidemia) Code(s): E78.5 - HYPERLIPIDEMIA, UNSPECIFIED Assessment/Plan IMP COPD EXACERBATION PNEUMONIA R APICAL THICKENING ASHD S/P CABG HLD PLAN TAPER STEROIDS INHALED BRONCHODILATORS SUPPLEMENTAL O2 ANTIBIOTICS PFTS OUTPATIENT DR CARTAGENA Problem List - Problems (1) Asthma with COPD with exacerbation Code(s): J44.1 - CHRONIC OBSTRUCTIVE PULMONARY DISEASE W (ACUTE) EXACERBATION J45.901 - UNSPECIFIED ASTHMA WITH (ACUTE) EXACERBATION (2) ASHD (arteriosclerotic heart disease) Code(s): I25.10 - ATHSCL HEART DISEASE OF [place] CORONARY ARTERY W/O ANG PCTRS (3) S/P CABG (coronary artery bypass graft) Code(s): Z95.1 - PRESENCE OF AORTOCORONARY BYPASS GRAFT (4) HLD (hyperlipidemia) Code(s): E78.5 - HYPERLIPIDEMIA, UNSPECIFIED
--- NOTE | 2016-04-16 21:54 | PN ---
Progress Note, Physician History of Present Illness: No new complaints - Current Medication List Current Medications: Active Medications Albuterol Sulfate (Ventolin 0.083% Nebulizer Soln -) 1 amp NEB Q4H PRN PRN Reason: SHORT OF BREATH/WHEEZING Last Admin: 04/14/16 23:15 Dose: 1 amp Albuterol Sulfate (Ventolin 0.083% Nebulizer Soln -) 1 amp NEB TIDR [facility] Last Admin: 04/16/16 14:10 Dose: 1 amp Aspirin (Asa -) 81 mg PO DAILY [facility] Last Admin: 04/16/16 09:14 Dose: 81 mg Atorvastatin Calcium (Lipitor -) 20 mg PO HS [facility] Last Admin: 04/15/16 21:01 Dose: 20 mg Budesonide/Formoterol Fumarate (Symbicort 160/4.5mcg -) 2 puff IH BID [facility] Last Admin: 04/16/16 09:15 Dose: 2 inh Folic Acid (Folic Acid -) 1 mg PO DAILY [facility] Last Admin: 04/16/16 09:13 Dose: 1 mg Guaifenesin (Robitussin Dm -) 10 ml PO Q6H PRN PRN Reason: COUGH Last Admin: 04/16/16 02:00 Dose: 10 ml HCTZ/Losartan Potassium (Hyzaar -) 1 tab PO DAILY [facility] Last Admin: 04/16/16 09:13 Dose: 1 tab Heparin Sodium (Porcine) (Heparin -) 5,000 unit SQ BID [facility] Last Admin: 04/16/16 09:14 Dose: 5,000 unit Levofloxacin (Levaquin 500 Mg Premixed Ivpb -) 100 mls @ 100 mls/hr IVPB DAILY [facility] Last Admin: 04/16/16 09:51 Dose: 100 mls/hr Methylprednisolone Sodium Succinate (Solu-Medrol -) 60 mg IVPB Q8H-IV [facility] Last Admin: 04/16/16 17:27 Dose: 60 mg Metoprolol Tartrate (Lopressor -) 25 mg PO BID [facility] Last Admin: 04/16/16 09:14 Dose: 25 mg Tamsulosin HCl (Flomax -) 0.4 mg PO DAILY@0830 [facility] Last Admin: 04/16/16 09:14 Dose: 0.4 mg Tiotropium [place] (Spiriva -) 1 puff IH DAILY [facility] Last Admin: 04/16/16 09:14 Dose: 1 inh - Objective Vital Signs: Vital Signs Temperature 98.0 F 04/16/16 18:00 Pulse Rate 82 04/16/16 18:00 Respiratory Rate 18 04/16/16 18:00 Blood Pressure 115/68 04/16/16 18:00 O2 Sat by Pulse Oximetry (%) 96 04/16/16 10:48 Constitutional: Yes: Calm Neck: Yes: Supple Cardiovascular: Yes: WNL Respiratory: Yes: Wheezes Gastrointestinal: Yes: WNL, Normal Bowel Sounds, Soft, Abdomen, Obese Labs: CBC, BMP 04/16/16 07:15 04/16/16 07:15 Problem List - Problems (1) Pneumonia Assessment/Plan: (+) strept antigen Cont IV levaquin Code(s): J18.9 - PNEUMONIA, UNSPECIFIED ORGANISM Qualifiers: Pneumonia type: due to unspecified organism Laterality: right Lung location: lower lobe of lung Qualified Code(s): J18.9 - Pneumonia, unspecified organism (2) Asthma exacerbation Assessment/Plan: Cont IV steroids/IV levauin Cont nebulizers Code(s): J45.901 - UNSPECIFIED ASTHMA WITH (ACUTE) EXACERBATION (3) HTN (hypertension) Assessment/Plan: BP stable Cont losarta-hctz/metoprolol Code(s): I10 - ESSENTIAL (PRIMARY) HYPERTENSION (4) HLD (hyperlipidemia) Assessment/Plan: Cont lipitor Code(s): E78.5 - HYPERLIPIDEMIA, UNSPECIFIED (5) BPH (benign prostatic hyperplasia) Assessment/Plan: Cont flomax Code(s): N40.0 - BENIGN PROSTATIC HYPERPLASIA WITHOUT LOWER URINRY TRACT SYMP (6) ASHD (arteriosclerotic heart disease) Code(s): I25.10 - ATHSCL HEART DISEASE OF [place] CORONARY ARTERY W/O ANG PCTRS
[2016-04-16] MEDS: ATORVASTATIN CA 20 MG TABLET (FP) PO SCH (22:17)
[2016-04-17] MEDS: methylPREDNISolone NA SUCC 40 MG/1 ML VIAL IVPB SCH ×3 (02:23→17:59)
[2016-04-17] MEDS: ALBUTEROL SO4 0.083% IH SOL 2.5 MG/3 ML VIAL.NEB. NEB SCH ×3 (05:19→22:00)
[2016-04-17] MEDS: TAMSULOSIN HCL 0.4 MG CAP.ER.24H (FP) PO SCH (08:44)
[2016-04-17] MEDS ORDERED: PT OWN MED DRAWER 7, Y5N ONE (09:05)
[2016-04-17] MEDS: METOPROLOL TARTRATE 25 MG TABLET (FP) PO SCH ×2 (09:15→21:43)
[2016-04-17] MEDS: FOLIC ACID 1 MG TABLET (FP) PO SCH (09:15)
[2016-04-17] MEDS: HEPARIN NA (PORCINE) 5,000 UNITS/ML 1ML VIAL SQ SCH ×2 (09:15→21:43)
[2016-04-17] MEDS: ASPIRIN 81 MG CHEWABLE TABLETS PO SCH (09:15)
[2016-04-17] MEDS: LOSARTAN 50MG/HCTZ 12.5MG 1 TAB (FP) PO SCH (09:15)
[2016-04-17] MEDS: TIOTROPIUM BROMIDE 18 MCG/INH (DEVICE W/ 5 CAPSULES) IH SCH (09:16)
[2016-04-17] MEDS: BUDESONIDE/FORMETEROL FUMARATE 160/4.5 mcg INHALER IH SCH ×2 (09:16→22:19)
[2016-04-17] MEDS: LEVOFLOXACIN 500 MG IVPB 100 ML IVPB SCH (10:22)
--- NOTE | 2016-04-17 11:24 | PN ---
Physical Exam: SUBJECTIVE: Patient seen and examined. He feels a little better. Still wheezing and coughing. OBJECTIVE: Vital Signs Period Temp Pulse Resp BP Sys/Leon Pulse Ox Last 24 Hr 97.8 F-98.1 F 64-82 18-20 112-123/54-79 98 GENERAL: The patient is awake, alert, and fully oriented, in no acute distress. NECK: Trachea midline, full range of motion, supple. LUNGS: Bilateral wheezes. HEART: Regular rate and rhythm, S1, S2 without murmur, rub or gallop. ABDOMEN: Soft, nontender, nondistended, normoactive bowel sounds, no guarding, no rebound, no hepatosplenomegaly, no masses. EXTREMITIES: 2+ pulses, warm, well-perfused, no edema. Active Medications Generic Name Dose Route Start Last Admin Trade Name Freq PRN Reason Stop Dose Admin Albuterol Sulfate 1 amp 04/14/16 13:17 04/14/16 23:15 Ventolin 0.083% Nebulizer Soln - NEB 1 amp Q4H PRN Administration SHORT OF BREATH/WHEEZING Albuterol Sulfate 1 amp 04/15/16 14:00 04/17/16 05:19 Ventolin 0.083% Nebulizer Soln - NEB 1 amp TIDR [facility] Administration Aspirin 81 mg 04/14/16 10:00 04/17/16 09:15 Asa - PO 81 mg DAILY [facility] Administration Atorvastatin Calcium 20 mg 04/13/16 22:00 04/16/16 22:17 Lipitor - PO 20 mg HS [facility] Administration Budesonide/Formoterol Fumarate 2 puff 04/14/16 13:30 04/17/16 09:16 Symbicort 160/4.5mcg - IH 2 puff BID [facility] Administration Folic Acid 1 mg 04/16/16 10:00 04/17/16 09:15 Folic Acid - PO 1 mg DAILY [facility] Administration Guaifenesin 10 ml 04/13/16 13:25 04/16/16 02:00 Robitussin Dm - PO 10 ml Q6H PRN Administration COUGH HCTZ/Losartan Potassium 1 tab 04/14/16 10:00 04/17/16 09:15 Hyzaar - PO 1 tab DAILY [facility] Administration Heparin Sodium (Porcine) 5,000 unit 04/13/16 22:00 04/17/16 09:15 Heparin - SQ 5,000 unit BID [facility] Administration Levofloxacin 100 mls @ 100 mls/hr 04/15/16 12:00 04/17/16 10:22 Levaquin 500 Mg Premixed Ivpb - IVPB 100 mls/hr DAILY [facility] Administration Methylprednisolone Sodium Succinate 60 mg 04/15/16 18:00 04/17/16 09:15 Solu-Medrol - IVPB 60 mg Q8H-IV [facility] Administration Metoprolol Tartrate 25 mg 04/13/16 22:00 04/17/16 09:15 Lopressor - PO 25 mg BID [facility] Administration Tamsulosin HCl 0.4 mg 04/16/16 08:30 04/17/16 08:44 Flomax - PO 0.4 mg DAILY@0830 [facility] Administration Tiotropium [place] 1 puff 04/14/16 13:30 04/17/16 09:16 Spiriva - IH 1 inh DAILY [facility] Administration ASSESSMENT/PLAN: 1. Pneumonia - Continue Levaquin 2. COPD exacerbation - Continue SoluMedrol, Symbicort, Spiriva, Albuterol nebs 3. Hypertension - Continue Hyzaar, Lopressor 4. Hyperlipidemia - Continue Lipitor 5. BPH - Continue Flomax 6. CAD, history of CABG - Continue aspirin, Lopressor, Lipitor Visit type - Emergency Visit Emergency Visit: Yes ED Registration Date: 04/13/16 Care time: The patient presented to the Emergency Department on the above date and was hospitalized for further evaluation of their emergent condition. - New Patient This patient is new to me today: Yes Date on this admission: 04/17/16 - Critical Care Critical Care patient: No - Discharge Referral Referred to [facility] No
--- NOTE | 2016-04-17 12:37 | PN ---
Progress Note, Physician History of Present Illness: pulmonary alert,feeling better,less congested. - Current Medication List Current Medications: Active Medications Albuterol Sulfate (Ventolin 0.083% Nebulizer Soln -) 1 amp NEB Q4H PRN PRN Reason: SHORT OF BREATH/WHEEZING Last Admin: 04/14/16 23:15 Dose: 1 amp Albuterol Sulfate (Ventolin 0.083% Nebulizer Soln -) 1 amp NEB TIDR [facility] Last Admin: 04/17/16 05:19 Dose: 1 amp Aspirin (Asa -) 81 mg PO DAILY [facility] Last Admin: 04/17/16 09:15 Dose: 81 mg Atorvastatin Calcium (Lipitor -) 20 mg PO HS [facility] Last Admin: 04/16/16 22:17 Dose: 20 mg Budesonide/Formoterol Fumarate (Symbicort 160/4.5mcg -) 2 puff IH BID [facility] Last Admin: 04/17/16 09:16 Dose: 2 puff Folic Acid (Folic Acid -) 1 mg PO DAILY [facility] Last Admin: 04/17/16 09:15 Dose: 1 mg Guaifenesin (Robitussin Dm -) 10 ml PO Q6H PRN PRN Reason: COUGH Last Admin: 04/16/16 02:00 Dose: 10 ml HCTZ/Losartan Potassium (Hyzaar -) 1 tab PO DAILY [facility] Last Admin: 04/17/16 09:15 Dose: 1 tab Heparin Sodium (Porcine) (Heparin -) 5,000 unit SQ BID [facility] Last Admin: 04/17/16 09:15 Dose: 5,000 unit Levofloxacin (Levaquin 500 Mg Premixed Ivpb -) 100 mls @ 100 mls/hr IVPB DAILY [facility] Last Admin: 04/17/16 10:22 Dose: 100 mls/hr Methylprednisolone Sodium Succinate (Solu-Medrol -) 60 mg IVPB Q8H-IV [facility] Last Admin: 04/17/16 09:15 Dose: 60 mg Metoprolol Tartrate (Lopressor -) 25 mg PO BID [facility] Last Admin: 04/17/16 09:15 Dose: 25 mg Tamsulosin HCl (Flomax -) 0.4 mg PO DAILY@0830 [facility] Last Admin: 04/17/16 08:44 Dose: 0.4 mg Tiotropium [place] (Spiriva -) 1 puff IH DAILY [facility] Last Admin: 04/17/16 09:16 Dose: 1 inh - Objective Vital Signs: Vital Signs Temperature 97.9 F 04/17/16 09:13 Pulse Rate 79 04/17/16 09:13 Respiratory Rate 20 04/17/16 09:13 Blood Pressure 123/79 04/17/16 09:13 O2 Sat by Pulse Oximetry (%) 98 04/16/16 21:00 Constitutional: Yes: Well Nourished, Calm Eyes: Yes: WNL HENT: Yes: WNL Neck: Yes: Supple Cardiovascular: Yes: Regular Rate and Rhythm, S1, S2 Respiratory: Yes: Wheezes (less wheezes kacie) Gastrointestinal: Yes: Normal Bowel Sounds, Soft Extremities: Yes: WNL Edema: No Labs: Problem List - Problems (1) Asthma with COPD with exacerbation Code(s): J44.1 - CHRONIC OBSTRUCTIVE PULMONARY DISEASE W (ACUTE) EXACERBATION J45.901 - UNSPECIFIED ASTHMA WITH (ACUTE) EXACERBATION (2) ASHD (arteriosclerotic heart disease) Code(s): I25.10 - ATHSCL HEART DISEASE OF [place] CORONARY ARTERY W/O ANG PCTRS (3) S/P CABG (coronary artery bypass graft) Code(s): Z95.1 - PRESENCE OF AORTOCORONARY BYPASS GRAFT (4) HLD (hyperlipidemia) Code(s): E78.5 - HYPERLIPIDEMIA, UNSPECIFIED Assessment/Plan IMP COPD EXACERBATION IMPROVING PNEUMONIA R APICAL THICKENING ASHD S/P CABG HLD PLAN TAPER STEROIDS INHALED BRONCHODILATORS SUPPLEMENTAL O2 ANTIBIOTICS PFTS OUTPATIENT DR CARTAGENA Problem List - Problems (1) Asthma with COPD with exacerbation Code(s): J44.1 - CHRONIC OBSTRUCTIVE PULMONARY DISEASE W (ACUTE) EXACERBATION J45.901 - UNSPECIFIED ASTHMA WITH (ACUTE) EXACERBATION (2) ASHD (arteriosclerotic heart disease) Code(s): I25.10 - ATHSCL HEART DISEASE OF [place] CORONARY ARTERY W/O ANG PCTRS (3) S/P CABG (coronary artery bypass graft) Code(s): Z95.1 - PRESENCE OF AORTOCORONARY BYPASS GRAFT (4) HLD (hyperlipidemia) Code(s): E78.5 - HYPERLIPIDEMIA, UNSPECIFIED
[2016-04-17] MEDS: ATORVASTATIN CA 20 MG TABLET (FP) PO SCH (21:43)
[2016-04-18] MEDS: methylPREDNISolone NA SUCC 40 MG/1 ML VIAL IVPB SCH ×3 (01:39→21:21)
[2016-04-18] MEDS: ALBUTEROL SO4 0.083% IH SOL 2.5 MG/3 ML VIAL.NEB. NEB SCH ×4 (06:28→22:15)
[2016-04-18] MEDS: TAMSULOSIN HCL 0.4 MG CAP.ER.24H (FP) PO SCH (08:05)
[2016-04-18 08:46] LABS: MCH 33.2 pg (25.7-33.7); MCHC 33.4 g/dl (32.0-35.9); MEAN CELL VOLUME 99.3 fl (80-96); MEAN PLT VOLUME 9.1 fl (7.5-11.1); PLATELET COUNT 171 K/MM3 (134-434); RDW 14.1 % (11.9-15.9); WHITE BLOOD COUNT 7.8 K/mm3 (4.0-10.0)
[2016-04-18 09:23] LABS: CALCIUM 8.1 mg/dL (8.5-10.1); CREATININE 1.1 mg/dL (0.7-1.3)
[2016-04-18] MEDS ORDERED: PT OWN MED DRAWER 7, Y5N ONE (09:35)
[2016-04-18] MEDS: TIOTROPIUM BROMIDE 18 MCG/INH (DEVICE W/ 5 CAPSULES) IH SCH (09:38)
[2016-04-18] MEDS: BUDESONIDE/FORMETEROL FUMARATE 160/4.5 mcg INHALER IH SCH ×2 (09:39→21:25)
[2016-04-18] MEDS: METOPROLOL TARTRATE 25 MG TABLET (FP) PO SCH ×2 (09:41→21:21)
[2016-04-18] MEDS: FOLIC ACID 1 MG TABLET (FP) PO SCH (09:41)
[2016-04-18] MEDS: ASPIRIN 81 MG CHEWABLE TABLETS PO SCH (09:41)
[2016-04-18] MEDS: LOSARTAN 50MG/HCTZ 12.5MG 1 TAB (FP) PO SCH (09:41)
[2016-04-18] MEDS: HEPARIN NA (PORCINE) 5,000 UNITS/ML 1ML VIAL SQ SCH ×2 (09:42→21:21)
[2016-04-18] MEDS: LEVOFLOXACIN 500 MG IVPB 100 ML IVPB SCH (10:46)
--- NOTE | 2016-04-18 12:24 | PN ---
Progress Note, Physician History of Present Illness: pulmonary alert,feelng better,less congested - Current Medication List Current Medications: Active Medications Albuterol Sulfate (Ventolin 0.083% Nebulizer Soln -) 1 amp NEB Q4H PRN PRN Reason: SHORT OF BREATH/WHEEZING Last Admin: 04/14/16 23:15 Dose: 1 amp Albuterol Sulfate (Ventolin 0.083% Nebulizer Soln -) 1 amp NEB TIDR [facility] Last Admin: 04/18/16 06:28 Dose: 1 amp Aspirin (Asa -) 81 mg PO DAILY [facility] Last Admin: 04/18/16 09:41 Dose: 81 mg Atorvastatin Calcium (Lipitor -) 20 mg PO HS [facility] Last Admin: 04/17/16 21:43 Dose: 20 mg Budesonide/Formoterol Fumarate (Symbicort 160/4.5mcg -) 2 puff IH BID [facility] Last Admin: 04/18/16 09:39 Dose: 2 puff Folic Acid (Folic Acid -) 1 mg PO DAILY [facility] Last Admin: 04/18/16 09:41 Dose: 1 mg Guaifenesin (Robitussin Dm -) 10 ml PO Q6H PRN PRN Reason: COUGH Last Admin: 04/16/16 02:00 Dose: 10 ml HCTZ/Losartan Potassium (Hyzaar -) 1 tab PO DAILY [facility] Last Admin: 04/18/16 09:41 Dose: 1 tab Heparin Sodium (Porcine) (Heparin -) 5,000 unit SQ BID [facility] Last Admin: 04/18/16 09:42 Dose: 5,000 unit Levofloxacin (Levaquin 500 Mg Premixed Ivpb -) 100 mls @ 100 mls/hr IVPB DAILY [facility] Last Admin: 04/18/16 10:46 Dose: 100 mls/hr Methylprednisolone Sodium Succinate (Solu-Medrol -) 60 mg IVPB Q8H-IV [facility] Last Admin: 04/18/16 09:42 Dose: 60 mg Metoprolol Tartrate (Lopressor -) 25 mg PO BID [facility] Last Admin: 04/18/16 09:41 Dose: 25 mg Tamsulosin HCl (Flomax -) 0.4 mg PO DAILY@0830 [facility] Last Admin: 04/18/16 08:05 Dose: 0.4 mg Tiotropium [place] (Spiriva -) 1 puff IH DAILY [facility] Last Admin: 04/18/16 09:38 Dose: 1 inh - Objective Vital Signs: Vital Signs Temperature 97.3 F L 04/18/16 10:00 Pulse Rate 78 04/18/16 10:00 Respiratory Rate 20 04/18/16 10:00 Blood Pressure 137/72 04/18/16 10:00 O2 Sat by Pulse Oximetry (%) 98 04/17/16 21:00 Constitutional: Yes: Well Nourished, Calm Eyes: Yes: WNL HENT: Yes: WNL Neck: Yes: WNL Cardiovascular: Yes: Regular Rate and Rhythm, S1, S2 Respiratory: Yes: Wheezes (less wheezes kacie) Gastrointestinal: Yes: Normal Bowel Sounds, Soft Extremities: Yes: WNL Edema: No Labs: CBC, BMP 04/18/16 07:45 04/18/16 07:45 Problem List - Problems (1) Asthma with COPD with exacerbation Code(s): J44.1 - CHRONIC OBSTRUCTIVE PULMONARY DISEASE W (ACUTE) EXACERBATION J45.901 - UNSPECIFIED ASTHMA WITH (ACUTE) EXACERBATION (2) ASHD (arteriosclerotic heart disease) Code(s): I25.10 - ATHSCL HEART DISEASE OF [place] CORONARY ARTERY W/O ANG PCTRS (3) S/P CABG (coronary artery bypass graft) Code(s): Z95.1 - PRESENCE OF AORTOCORONARY BYPASS GRAFT (4) HLD (hyperlipidemia) Code(s): E78.5 - HYPERLIPIDEMIA, UNSPECIFIED Assessment/Plan IMP COPD EXACERBATION IMPROVING PNEUMONIA R APICAL THICKENING ASHD S/P CABG HLD PLAN CONT TAPER STEROIDS INHALED BRONCHODILATORS SUPPLEMENTAL O2 ANTIBIOTICS PFTS OUTPATIENT DR CARTAGENA Problem List - Problems (1) Asthma with COPD with exacerbation Code(s): J44.1 - CHRONIC OBSTRUCTIVE PULMONARY DISEASE W (ACUTE) EXACERBATION J45.901 - UNSPECIFIED ASTHMA WITH (ACUTE) EXACERBATION (2) ASHD (arteriosclerotic heart disease) Code(s): I25.10 - ATHSCL HEART DISEASE OF [place] CORONARY ARTERY W/O ANG PCTRS (3) S/P CABG (coronary artery bypass graft) Code(s): Z95.1 - PRESENCE OF AORTOCORONARY BYPASS GRAFT (4) HLD (hyperlipidemia) Code(s): E78.5 - HYPERLIPIDEMIA, UNSPECIFIED
--- NOTE | 2016-04-18 20:59 | PN ---
Progress Note, Physician History of Present Illness: No new complaints - Current Medication List Current Medications: Active Medications Albuterol Sulfate (Ventolin 0.083% Nebulizer Soln -) 1 amp NEB Q4H PRN PRN Reason: SHORT OF BREATH/WHEEZING Last Admin: 04/14/16 23:15 Dose: 1 amp Albuterol Sulfate (Ventolin 0.083% Nebulizer Soln -) 1 amp NEB [facility]R [facility] Last Admin: 04/18/16 13:44 Dose: 1 amp Aspirin (Asa -) 81 mg PO DAILY [facility] Last Admin: 04/18/16 09:41 Dose: 81 mg Atorvastatin Calcium (Lipitor -) 20 mg PO HS [facility] Last Admin: 04/17/16 21:43 Dose: 20 mg Budesonide/Formoterol Fumarate (Symbicort 160/4.5mcg -) 2 puff IH BID [facility] Last Admin: 04/18/16 09:39 Dose: 2 puff Folic Acid (Folic Acid -) 1 mg PO DAILY [facility] Last Admin: 04/18/16 09:41 Dose: 1 mg Guaifenesin (Robitussin Dm -) 10 ml PO Q6H PRN PRN Reason: COUGH Last Admin: 04/16/16 02:00 Dose: 10 ml HCTZ/Losartan Potassium (Hyzaar -) 1 tab PO DAILY [facility] Last Admin: 04/18/16 09:41 Dose: 1 tab Heparin Sodium (Porcine) (Heparin -) 5,000 unit SQ BID [facility] Last Admin: 04/18/16 09:42 Dose: 5,000 unit Levofloxacin (Levaquin 500 Mg Premixed Ivpb -) 100 mls @ 100 mls/hr IVPB DAILY [facility] Last Admin: 04/18/16 10:46 Dose: 100 mls/hr Methylprednisolone Sodium Succinate (Solu-Medrol -) 40 mg IVPB BID [facility] Metoprolol Tartrate (Lopressor -) 25 mg PO BID [facility] Last Admin: 04/18/16 09:41 Dose: 25 mg Tamsulosin HCl (Flomax -) 0.4 mg PO DAILY@0830 [facility] Last Admin: 04/18/16 08:05 Dose: 0.4 mg Tiotropium [place] (Spiriva -) 1 puff IH DAILY [facility] Last Admin: 04/18/16 09:38 Dose: 1 inh - Objective Vital Signs: Vital Signs Temperature 98.2 F 04/18/16 15:51 Pulse Rate 78 04/18/16 15:51 Respiratory Rate 20 04/18/16 15:51 Blood Pressure 137/72 04/18/16 10:00 O2 Sat by Pulse Oximetry (%) 97 04/18/16 09:00 Neck: Yes: Supple Cardiovascular: Yes: WNL, Regular Rate and Rhythm Respiratory: Yes: Other (Occassional expiratory wheeze) Gastrointestinal: Yes: WNL, Normal Bowel Sounds, Soft Labs: CBC, BMP 04/18/16 07:45 04/18/16 07:45 Problem List - Problems (1) Pneumonia Assessment/Plan: (+) strept antigen Cont IV levaquin Code(s): J18.9 - PNEUMONIA, UNSPECIFIED ORGANISM Qualifiers: Pneumonia type: due to unspecified organism Laterality: right Lung location: lower lobe of lung Qualified Code(s): J18.9 - Pneumonia, unspecified organism (2) Asthma exacerbation Assessment/Plan: Cont IV steroid but will taper dose Cont symbicort/spireva Cont ventolin nebulizer Cont IV levaquin Cjheck labs in am Code(s): J45.901 - UNSPECIFIED ASTHMA WITH (ACUTE) EXACERBATION (3) HTN (hypertension) Assessment/Plan: BP stable Cont losarta-hctz/metoprolol Code(s): I10 - ESSENTIAL (PRIMARY) HYPERTENSION (4) HLD (hyperlipidemia) Assessment/Plan: Cont lipitor Code(s): E78.5 - HYPERLIPIDEMIA, UNSPECIFIED (5) BPH (benign prostatic hyperplasia) Assessment/Plan: Cont flomax Code(s): N40.0 - BENIGN PROSTATIC HYPERPLASIA WITHOUT LOWER URINRY TRACT SYMP (6) ASHD (arteriosclerotic heart disease) Code(s): I25.10 - ATHSCL HEART DISEASE OF [place] CORONARY ARTERY W/O ANG PCTRS
[2016-04-18] MEDS: ATORVASTATIN CA 20 MG TABLET (FP) PO SCH (21:21)
[2016-04-19] MEDS: guaiFENesin/D-METHORPHAN HB 10 ML UNIT-DOSE CUPS PO PRN ×2 (05:54→21:27)
[2016-04-19] MEDS: ALBUTEROL SO4 0.083% IH SOL 2.5 MG/3 ML VIAL.NEB. NEB SCH ×3 (06:32→22:13)
[2016-04-19 07:55] LABS: BASOPHIL 0.1 % (0-2.0); MCH 33.1 pg (25.7-33.7); MCHC 33.2 g/dl (32.0-35.9); MEAN CELL VOLUME 99.6 fl (80-96); MEAN PLT VOLUME 9.2 fl (7.5-11.1); PLATELET COUNT 182 K/MM3 (134-434); RDW 14.2 % (11.9-15.9); WHITE BLOOD COUNT 7.7 K/mm3 (4.0-10.0)
[2016-04-19] MEDS ORDERED: PT OWN MED DRAWER 7, Y5N ONE (08:51)
[2016-04-19] MEDS: TAMSULOSIN HCL 0.4 MG CAP.ER.24H (FP) PO SCH (09:00)
[2016-04-19] MEDS: LOSARTAN 50MG/HCTZ 12.5MG 1 TAB (FP) PO SCH (09:01)
[2016-04-19] MEDS: LEVOFLOXACIN 500 MG IVPB 100 ML IVPB SCH (09:02)
[2016-04-19] MEDS: methylPREDNISolone NA SUCC 40 MG/1 ML VIAL IVPB SCH ×2 (09:02→21:27)
[2016-04-19] MEDS: ASPIRIN 81 MG CHEWABLE TABLETS PO SCH (09:02)
[2016-04-19] MEDS: FOLIC ACID 1 MG TABLET (FP) PO SCH (09:02)
[2016-04-19] MEDS: METOPROLOL TARTRATE 25 MG TABLET (FP) PO SCH ×2 (09:02→21:27)
[2016-04-19] MEDS: HEPARIN NA (PORCINE) 5,000 UNITS/ML 1ML VIAL SQ SCH ×2 (09:03→21:27)
[2016-04-19] MEDS: BUDESONIDE/FORMETEROL FUMARATE 160/4.5 mcg INHALER IH SCH ×2 (09:04→21:27)
[2016-04-19] MEDS: TIOTROPIUM BROMIDE 18 MCG/INH (DEVICE W/ 5 CAPSULES) IH SCH (09:04)
[2016-04-19 09:13] LABS: ALK PHOS 55 U/L (45-117); ANION GAP 8 (8-16); BILIRUBIN,TOTAL 0.5 mg/dL (0.2-1.0); CALCIUM 8.4 mg/dL (8.5-10.1); CO2 27 mmol/L (21-32); GLUCOSE,RANDOM 115 mg/dL (74-106); SGOT/AST 16 U/L (15-37); SGPT/ALT 28 U/L (12-78); TOT PROT 5.5 g/dl (6.4-8.2)
--- NOTE | 2016-04-19 12:06 | PN ---
Progress Note (short form) - Note Progress Note: PULMONARY Feels well, some congestion. +cough with beige sputum. No fevers or chills. Last Vital Signs Temp Pulse Resp BP Pulse Ox 97.5 F L 65 18 125/79 95 04/19/16 08:00 04/19/16 11:20 04/19/16 08:00 04/19/16 08:00 04/19/16 11:20 Gen: NAD at rest Heart: RRR Lung: rare wheezes Abd: soft, nontender Ext: no edema CBC, BMP 04/19/16 07:00 04/19/16 07:00 Active Medications Albuterol Sulfate (Ventolin 0.083% Nebulizer Soln -) 1 amp NEB Q4H PRN PRN Reason: SHORT OF BREATH/WHEEZING Last Admin: 04/14/16 23:15 Dose: 1 amp Albuterol Sulfate (Ventolin 0.083% Nebulizer Soln -) 1 amp NEB TIDR [facility] Last Admin: 04/19/16 06:32 Dose: Not Given Aspirin (Asa -) 81 mg PO DAILY [facility] Last Admin: 04/19/16 09:02 Dose: 81 mg Atorvastatin Calcium (Lipitor -) 20 mg PO HS [facility] Last Admin: 04/18/16 21:21 Dose: 20 mg Budesonide/Formoterol Fumarate (Symbicort 160/4.5mcg -) 2 puff IH BID [facility] Last Admin: 04/19/16 09:04 Dose: 2 puff Folic Acid (Folic Acid -) 1 mg PO DAILY [facility] Last Admin: 04/19/16 09:02 Dose: 1 mg Guaifenesin (Robitussin Dm -) 10 ml PO Q6H PRN PRN Reason: COUGH Last Admin: 04/19/16 05:54 Dose: 10 ml HCTZ/Losartan Potassium (Hyzaar -) 1 tab PO DAILY [facility] Last Admin: 04/19/16 09:01 Dose: 1 tab Heparin Sodium (Porcine) (Heparin -) 5,000 unit SQ BID [facility] Last Admin: 04/19/16 09:03 Dose: 5,000 unit Levofloxacin (Levaquin 500 Mg Premixed Ivpb -) 100 mls @ 100 mls/hr IVPB DAILY [facility] Last Admin: 04/19/16 09:02 Dose: 100 mls/hr Methylprednisolone Sodium Succinate (Solu-Medrol -) 40 mg IVPB BID [facility] Last Admin: 04/19/16 09:02 Dose: 40 mg Metoprolol Tartrate (Lopressor -) 25 mg PO BID [facility] Last Admin: 04/19/16 09:02 Dose: 25 mg Tamsulosin HCl (Flomax -) 0.4 mg PO DAILY@0830 [facility] Last Admin: 04/19/16 09:00 Dose: 0.4 mg Tiotropium [place] (Spiriva -) 1 puff IH DAILY [facility] Last Admin: 04/19/16 09:04 Dose: 1 inh A/P Acute COPD Exacerbation Pneumonia CAD s/p CABG Hyperlipidemia - can change steroids to PO - inhaled bronchodilators - complete antibiotic course - O2 as needed - DVT prophylaxis - outpt PFTs
--- NOTE | 2016-04-19 21:03 | PN ---
Progress Note, Physician History of Present Illness: No new complaints - Current Medication List Current Medications: Active Medications Albuterol Sulfate (Ventolin 0.083% Nebulizer Soln -) 1 amp NEB TIDR [facility] Last Admin: 04/19/16 14:03 Dose: 1 amp Aspirin (Asa -) 81 mg PO DAILY [facility] Last Admin: 04/19/16 09:02 Dose: 81 mg Atorvastatin Calcium (Lipitor -) 20 mg PO HS [facility] Last Admin: 04/18/16 21:21 Dose: 20 mg Budesonide/Formoterol Fumarate (Symbicort 160/4.5mcg -) 2 puff IH BID [facility] Last Admin: 04/19/16 09:04 Dose: 2 puff Folic Acid (Folic Acid -) 1 mg PO DAILY [facility] Last Admin: 04/19/16 09:02 Dose: 1 mg Guaifenesin (Robitussin Dm -) 10 ml PO Q6H PRN PRN Reason: COUGH Last Admin: 04/19/16 05:54 Dose: 10 ml HCTZ/Losartan Potassium (Hyzaar -) 1 tab PO DAILY [facility] Last Admin: 04/19/16 09:01 Dose: 1 tab Heparin Sodium (Porcine) (Heparin -) 5,000 unit SQ BID [facility] Last Admin: 04/19/16 09:03 Dose: 5,000 unit Levofloxacin (Levaquin 500 Mg Premixed Ivpb -) 100 mls @ 100 mls/hr IVPB DAILY [facility] Last Admin: 04/19/16 09:02 Dose: 100 mls/hr Methylprednisolone Sodium Succinate (Solu-Medrol -) 40 mg IVPB BID [facility] Last Admin: 04/19/16 09:02 Dose: 40 mg Metoprolol Tartrate (Lopressor -) 25 mg PO BID [facility] Last Admin: 04/19/16 09:02 Dose: 25 mg Tamsulosin HCl (Flomax -) 0.4 mg PO DAILY@0830 [facility] Last Admin: 04/19/16 09:00 Dose: 0.4 mg Tiotropium [place] (Spiriva -) 1 puff IH DAILY [facility] Last Admin: 04/19/16 09:04 Dose: 1 inh - Objective Vital Signs: Vital Signs Temperature 97.6 F 04/19/16 18:00 Pulse Rate 70 04/19/16 18:00 Respiratory Rate 20 04/19/16 20:09 Blood Pressure 124/79 04/19/16 18:00 O2 Sat by Pulse Oximetry (%) 96 04/19/16 20:09 Neck: Yes: Supple Cardiovascular: Yes: WNL, Regular Rate and Rhythm Respiratory: Yes: WNL, Regular, CTA Bilaterally Gastrointestinal: Yes: WNL, Normal Bowel Sounds Labs: CBC, BMP 04/19/16 07:00 04/19/16 07:00 Problem List - Problems (1) Asthma exacerbation Assessment/Plan: Change to prednisone in am w/ dc planning Cont symbicort/spireva Cont ventolin nebulizer Change to po levaquin Code(s): J45.901 - UNSPECIFIED ASTHMA WITH (ACUTE) EXACERBATION (2) Pneumonia Assessment/Plan: (+) strept antigen Cont to po levaquin in am Code(s): J18.9 - PNEUMONIA, UNSPECIFIED ORGANISM Qualifiers: Pneumonia type: due to unspecified organism Laterality: right Lung location: lower lobe of lung Qualified Code(s): J18.9 - Pneumonia, unspecified organism (3) HTN (hypertension) Assessment/Plan: BP stable Cont losarta-hctz/metoprolol Code(s): I10 - ESSENTIAL (PRIMARY) HYPERTENSION (4) HLD (hyperlipidemia) Code(s): E78.5 - HYPERLIPIDEMIA, UNSPECIFIED (5) BPH (benign prostatic hyperplasia) Code(s): N40.0 - BENIGN PROSTATIC HYPERPLASIA WITHOUT LOWER URINRY TRACT SYMP (6) ASHD (arteriosclerotic heart disease) Code(s): I25.10 - ATHSCL HEART DISEASE OF [place] CORONARY ARTERY W/O ANG PCTRS
[2016-04-19] MEDS: ATORVASTATIN CA 20 MG TABLET (FP) PO SCH (21:27)
[2016-04-20] MEDS: ALBUTEROL SO4 0.083% IH SOL 2.5 MG/3 ML VIAL.NEB. NEB SCH ×2 (05:43→15:00)
[2016-04-20] MEDS ORDERED: PT OWN MED DRAWER 7, Y5N ONE (09:39)
[2016-04-20] MEDS: LOSARTAN 50MG/HCTZ 12.5MG 1 TAB (FP) PO SCH (09:54)
[2016-04-20] MEDS: TAMSULOSIN HCL 0.4 MG CAP.ER.24H (FP) PO SCH (09:54)
[2016-04-20] MEDS: ASPIRIN 81 MG CHEWABLE TABLETS PO SCH (09:54)
[2016-04-20] MEDS: METOPROLOL TARTRATE 25 MG TABLET (FP) PO SCH (09:54)
[2016-04-20] MEDS: LEVOFLOXACIN 500 MG IVPB 100 ML IVPB SCH (09:54)
[2016-04-20] MEDS: FOLIC ACID 1 MG TABLET (FP) PO SCH (09:54)
[2016-04-20] MEDS: methylPREDNISolone NA SUCC 40 MG/1 ML VIAL IVPB SCH (09:54)
[2016-04-20] MEDS: HEPARIN NA (PORCINE) 5,000 UNITS/ML 1ML VIAL SQ SCH (09:54)
[2016-04-20] MEDS: BUDESONIDE/FORMETEROL FUMARATE 160/4.5 mcg INHALER IH SCH (09:55)
[2016-04-20] MEDS: TIOTROPIUM BROMIDE 18 MCG/INH (DEVICE W/ 5 CAPSULES) IH SCH (09:55)
--- NOTE | 2016-04-20 11:08 | PN ---
Progress Note (short form) - Note Progress Note: PULMONARY +cough with off white sputum. No fevers or chills. Last Vital Signs Temp Pulse Resp BP Pulse Ox 98.0 F 81 20 125/66 95 04/20/16 08:00 04/20/16 08:00 04/20/16 08:00 04/20/16 08:00 04/20/16 08:00 Gen: NAD at rest Heart: RRR Lung: scattered basilar rales Abd: soft, nontender Ext: no edema CBC, BMP 04/19/16 07:00 04/19/16 07:00 Active Medications Albuterol Sulfate (Ventolin 0.083% Nebulizer Soln -) 1 amp NEB TIDR [facility] Last Admin: 04/20/16 05:43 Dose: 1 amp Aspirin (Asa -) 81 mg PO DAILY [facility] Last Admin: 04/20/16 09:54 Dose: 81 mg Atorvastatin Calcium (Lipitor -) 20 mg PO HS [facility] Last Admin: 04/19/16 21:27 Dose: 20 mg Budesonide/Formoterol Fumarate (Symbicort 160/4.5mcg -) 2 puff IH BID [facility] Last Admin: 04/20/16 09:55 Dose: 2 puff Folic Acid (Folic Acid -) 1 mg PO DAILY [facility] Last Admin: 04/20/16 09:54 Dose: 1 mg Guaifenesin (Robitussin Dm -) 10 ml PO Q6H PRN PRN Reason: COUGH Last Admin: 04/19/16 21:27 Dose: 10 ml HCTZ/Losartan Potassium (Hyzaar -) 1 tab PO DAILY [facility] Last Admin: 04/20/16 09:54 Dose: 1 tab Heparin Sodium (Porcine) (Heparin -) 5,000 unit SQ BID [facility] Last Admin: 04/20/16 09:54 Dose: 5,000 unit Levofloxacin (Levaquin 500 Mg Premixed Ivpb -) 100 mls @ 100 mls/hr IVPB DAILY [facility] Last Admin: 04/20/16 09:54 Dose: 100 mls/hr Methylprednisolone Sodium Succinate (Solu-Medrol -) 40 mg IVPB BID [facility] Last Admin: 04/20/16 09:54 Dose: 40 mg Metoprolol Tartrate (Lopressor -) 25 mg PO BID [facility] Last Admin: 04/20/16 09:54 Dose: 25 mg Tamsulosin HCl (Flomax -) 0.4 mg PO DAILY@0830 [facility] Last Admin: 04/20/16 09:54 Dose: 0.4 mg Tiotropium [place] (Spiriva -) 1 puff IH DAILY [facility] Last Admin: 04/20/16 09:55 Dose: 1 inh A/P Acute COPD Exacerbation Pneumonia CAD s/p CABG Hyperlipidemia - can change steroids to PO - inhaled bronchodilators - complete antibiotic course - O2 as needed - DVT prophylaxis - outpt PFTs
[2016-04-20 13:53] VITALS: BP 120/65; PULSE 67; TEMP 97.3
--- NOTE | 2016-05-10 13:05 | DS ---
Physical Examination Vital Signs: Vital Signs Temperature 97.3 F L 04/20/16 13:52 Pulse Rate 67 04/20/16 13:52 Respiratory Rate 20 04/20/16 08:00 Blood Pressure 120/65 04/20/16 13:52 O2 Sat by Pulse Oximetry (%) 95 04/20/16 08:00 Labs: CBC, BMP 04/19/16 07:00 04/19/16 07:00 Discharge Summary Reason For Visit: ASTHMA EXACERBATION Hospital Course: 76 year old male with a PMHx CAD s/p CABG, HTN, HLD, asthma presents with progressively worsening dyspnea and cough. 1) COPD exacerbation/Pneumonia -patient was placed on iv steroids, iv antibiotics, inhaled bd -seen and evaluated by pulmonary -ct chest confirming pna, right apical scarring-needs followup imaging to assure resolution of pneumonia, 4-8 weeks -needs outpatient PFTs -patient improved during hospital stay and was transitioned to oral steroids/abx -he was deemed in stable and improved condition for discharge home 2) CAD s/p CABG 3) HTN 4) HLD Condition: Fair - Instructions Diet, Activity, Other Instructions: regular diet Referrals: John Blackburn [Primary Care Provider] - Disposition: HOME - Home Medications Comprehensive Discharge Medication List: Ambulatory Orders Atorvastatin [place] [Lipitor] 20 mg PO DAILY 06/05/13 Losartan/Hydrochlorothiazide [Losartan-Hctz 50-12.5 mg Tab] 50 mg PO DAILY 06/05 Metoprolol Tartrate [Lopressor -] 12.5 mg PO BID 06/05/13 Albuterol Sulfate Inhaler - [Ventolin HFA Inhaler -] 1 - 2 inh PO QID PRN Aspirin [ASA -] 81 mg PO DAILY 04/13/16 Fluticasone/Salmeterol [Advair 250-50 Diskus] 1 each IH PRN 04/13/16 Tiotropium [place] [Spiriva] 1 inh PO BID 04/13/16 Folic Acid 1 mg PO DAILY 04/14/16 Tamsulosin HCl 0.4 mg PO DAILY 04/14/16 Budesonide/Formeterol Fumarate [SYMBICORT 160/4.5mcg -] 2 puff IH BID #1 inhaler 04/20/16 Folic Acid - 1 mg PO DAILY tablet 04/20/16 Prednisone [Deltasone -] 40 mg PO DAILY #14 tablet 04/20/16 Tamsulosin HCl [Flomax -] 0.4 mg PO DAILY@0830 cap.er.24h 04/20/16 Tiotropium [place] [Spiriva] 1 puff IH DAILY #1 inh 04/20/16
== END 2016-04-20 15:40 | disposition home or self-care (01) | DRG 190 ==
LOC: JER 08:18 → JERBED 11:54 → J6S 16:26
PROVIDERS: ADMIT Internal Medicine; ATTEND Internal Medicine
DX: J44.1 Chronic obstructive pulmonary disease with (acute) exacerbation (principal); J18.9 Pneumonia, unspecified organism; J45.901 Unspecified asthma with (acute) exacerbation; I25.10 Atherosclerotic heart disease of native coronary artery without angina pectoris; Z95.1 Presence of aortocoronary bypass graft; E78.5 Hyperlipidemia, unspecified; I10 Essential (primary) hypertension; N40.0 Benign prostatic hyperplasia without lower urinary tract symptoms; J06.9 Acute upper respiratory infection, unspecified; Z87.891 Personal history of nicotine dependence
CPT/HCPCS: 36415; 71020-TC; 71250-TC; 80048; 80053; 82550; 82553; 84484; 85025; 85027; 87070; 87205; 87254; 87804; 87899; 90732; 93005; 93010; 94150; 94640; 99285-25; G0009; J1644

== ENCOUNTER 2019-04-09 09:53 | Emergency (ER) | payer OTHER ==
--- NOTE | 2019-04-09 10:21 | PDOC ---
History of Present Illness - General Chief Complaint: Injury Stated Complaint: FALL Time Seen by Provider: 04/09/19 10:17 - History of Present Illness Initial Comments: 04/09/19 10:20 79 yo Maori speaking male with h/o BPH, arthritis, COPD, HTN, HLD, asthma, CABG who p/w lower back pain s/p mechanical fall. at bedside to assist in report. Patient sustained fall 04/05/18 when ambulating with walker in house. denies patient hitting head, and landing onto buttocks. Denies LOC, or AC use. Patient on ground for minutes before standing. Patient with lower back pain the following day, and unable to ambulate, or stand. Patient with continued lower back pain. Denies OTC symptom management with Motrin or Tylenol. Pain control with pain patches lower back per . Patient with recent orthopedic apt. 04/05/18. Follows with chiropractor for chronic back pain. No home health care assistance Patient denies NICKERSON, vision change, palpitations, cough, wheezing, orthopena, PND , leg swelling/pain, N/V, F,C, CP, SOB, urinary complaints, perianal parasthesias, hematuria, BPR, abdominal pain, diarrhea, constipation, lightheadedness, weakness, sensory changes. PMHx: as noted above ROS: as noted SHx: Denies Etoh, IVDA, tobacco use Allergies: NKDA Past History - Past Medical History Allergies/Adverse Reactions: Allergies Allergy/AdvReac Type Severity Reaction Status Date / Time No Known Drug Allergies Allergy Verified 04/13/16 08:19 Home Medications: Ambulatory Orders Atorvastatin Ca [Lipitor] 20 mg PO DAILY 06/05/13 Metoprolol Tartrate [Lopressor -] 25 mg PO BID 06/05/13 Albuterol Sulfate Inhaler - [Ventolin HFA Inhaler -] 1 - 2 inh PO QID PRN Aspirin [ASA -] 81 mg PO DAILY 04/13/16 Fluticasone/Salmeterol [Advair 250-50 Diskus] 1 each IH PRN 04/13/16 Budesonide/Formeterol Fumarate [SYMBICORT 160/4.5mcg -] 2 puff IH BID #1 inhaler 04/20/16 Tiotropium [place] [Spiriva] 1 puff IH DAILY #1 inh 04/20/16 Acetaminophen [Tylenol -] 325 mg PO Q3H PRN #14 tablet MDD 3 tab 04/09/19 Alendronate Sodium [Fosamax] 1 tab WEEKLY 04/09/19 Back Brace [Ultra Support] 1 each MC ONCE #1 each 04/09/19 Bimatoprost [Lumigan] 1 drop IO DAILY 04/09/19 Dexlansoprazole [Dexilant] 60 mg PO DAILY 04/09/19 Donepezil HCl 5 mg PO HS 04/09/19 Furosemide [Lasix] 20 mg PO DAILY 04/09/19 Ibuprofen [Motrin -] 600 mg PO TID PRN #14 tablet MDD 3 tab 04/09/19 Icosapent Ethyl [Vascepa] 1 gm PO BID 04/09/19 Magnesium Oxide [Mag-Oxide] 400 mg PO DAILY 04/09/19 Megestrol Acetate 15 ml PO DAILY 04/09/19 Meloxicam 15 mg PO DAILY 04/09/19 Metoprolol Tartrate [Lopressor -] 25 mg PO BID 04/09/19 Omeprazole Magnesium [Prilosec Otc] 40 mg PO DAILY 04/09/19 Polyethylene Glycol 3350 [Miralax (For Daily Use) -] 17 gm PO DAILY 04/09/19 Tamsulosin HCl [Flomax] 0.4 mg PO DAILY 04/09/19 Telmisartan 20 mg PO DAILY 04/09/19 Vitamin B Complex 1 each PO DAILY 04/09/19 Anemia: Yes Asthma: No Cancer: No Cardiac Disorders: Yes (CAD CABG 09/2012) CVA: No COPD: Yes CHF: No Dementia: No Diabetes: No GI Disorders: No Disorders: Yes (BPH) HTN: Yes Hypercholesterolemia: Yes Liver Disease: No Seizures: No Thyroid Disease: No - Surgical History Appendectomy: Yes Cardiac Surgery: Yes (CABG/ BYPASS SURGERY) - Immunization History Immunization Up to Date: Yes - Psycho Social/Smoking Cessation Hx Smoking History: Former smoker Have you smoked in the past 12 months: Yes If you are a former smoker, when did you quit?: 10 months ago Hx Alcohol Use: No Drug/Substance Use Hx: No Substance Use Type: None Hx Substance Use Treatment: No Review of Systems - Review of Systems Comments:: 04/09/19 10:21 GENERAL/CONSTITUTIONAL: No fever or chills. No weakness. HEAD, EYES, EARS, NOSE AND THROAT: No change in vision. No ear pain or discharge. No sore throat. CARDIOVASCULAR: No chest pain or shortness of breath RESPIRATORY: No cough, wheezing, or hemoptysis. GASTROINTESTINAL: No nausea, vomiting, diarrhea or constipation. GENITOURINARY: No dysuria, frequency, or change in urination. MUSCULOSKELETAL: No joint or muscle swelling or pain. No neck or back pain. SKIN: No rash NEUROLOGIC: + Back pain. No headache, vertigo, loss of consciousness, or change in strength/sensation. ENDOCRINE: No increased thirst. No abnormal weight change HEMATOLOGIC/LYMPHATIC: No anemia, easy bleeding, or history of blood clots. ALLERGIC/IMMUNOLOGIC: No hives or skin allergy. *Physical Exam - Physical Exam 04/09/19 10:21 GENERAL: Awake, alert, and oriented x 2, in no acute distress HEAD: No signs of trauma, normocephalic, atraumatic EYES: PERRLA, EOMI, sclera anicteric, conjunctiva clear ENT: Auricles normal inspection, hearing grossly normal, nares patent, oropharynx clear without exudates. Moist mucosa NECK: Normal ROM, supple, no lymphadenopathy, JVD, or masses LUNGS: No distress, speaks full sentences, clear to auscultation bilaterally HEART: Regular rate and rhythm, normal S1 and S2, no murmurs, rubs or gallops, peripheral pulses normal and equal bilaterally. ABDOMEN: Soft, nontender, normoactive bowel sounds. No guarding, no rebound. No masses EXTREMITIES : Normal inspection, Normal range of motion, no edema. No clubbing or cyanosis NEUROLOGICAL: Cranial nerves II through XII grossly intact. Normal speech, no focal sensorimotor deficits. Patient able to stand with assistance, unable to ambulate. Back: Negative midline or paraspinal ttp, step-off, bony deformity. Neg skin changes. + Lumbar patch in place. SKIN: Warm, Dry, normal turgor, no rashes or lesions noted ED Treatment Course - LABORATORY CBC & Chemistry Diagram: 04/09/19 11:28 04/09/19 11:28 - ADDITIONAL ORDERS Additional order review: 04/09/19 13:09 Fito Bedoya Name: ANGÉLICA WARD DEPARTMENT OF RADIOLOGY Phys: Hank Lopez RESIDENT : 1940 Age: 79 Sex: [facility] Acct: [id number] Loc: [facility] [address] [facility] Exam Date: 04/09/19 Status: PENNY Rollins Unit Number: [id number] EXAM#: TYPE/EXAM: RESULT: CT/LUMBAR SPINE CT W/O CONTRAST CT/THORACIC SPINE CT W/O CONTRAST CT thoracolumbosacral spine C-. Direct axial images were obtained with coronal, sagittal reconstruction image. Demineralized osseous structures. L3. Extensive comminuted burst fracture of L3 vertebral body with retropulsion is seen. Anterior, lateral cortex is disrupted.. Midline fracture of the posterior lamina at the junction of the spinous processes. The interpeduncular distance measures 27 mm at the L3, versus 26 mm at L4. Maximal loss of vertical height of L3 in comparison to L4, L2 approximately 75-80%. Central spinal canal stenosis. No evidence of significant paraspinal soft tissue swelling. Disc bulge at L2-L3, L3-L4 with central spinal canal stenosis. L4-L5. Disc bulge. Central spinal canal stenosis. Facet joint arthropathy with thickened ligamenta flavum. Prominent circumferential disc bulge. Facet joint arthropathy with thickened ligamentum flavum. Central spinal canal stenosis L5-S1. Posterior annular bulge. Facet joint arthropathy. Normal height of thoracic vertebral bodies. Normal height of intervertebral disc spaces. No evidence of central spinal canal stenosis. Extensive parenchymal or pleural disease is noted in the right apical region with fibrosis microcalcifications. The trachea is deviated to the right side. Please refer to the CT of the chest February 15, 2017. Impression. L3. Extensive comminuted burst fracture of L3 vertebral body with retropulsion. Anterior, lateral cortex is disrupted. Midline fracture of the posterior lamina at the junction of the spinous processes. The interpeduncular distance measures 27 mm at the L3, versus 26 mm at L4. Maximal loss of vertical height of L3 in comparison to L4, L2 approximately 75-80%. Central spinal canal stenosis. 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 The findings were discussed with Dr. Hank Lopez at 12:45 PM. Reported By: Corey Langley MD 04/09/19 1306 Hank Lopez Technologist: Simon Tellez Transcribed Date/Time: 04/09/19 1306 Truck Hopper: Corey Langley Printed Date/Time: By: Fito Bedoya Name: ANGÉLICA WARD DEPARTMENT OF RADIOLOGY Phys: Hank Lopez RESIDENT : 1940 Age: 79 Sex: [facility] Acct: [id number] Loc: [address] Exam Date: 04/09/19 Status: VIMAL [place] [address] Unit Number: [id number] ACCESSION # : [id number] EXAM#: TYPE/EXAM: RESULT: CT/LUMBAR SPINE CT W/O CONTRAST CT/THORACIC SPINE CT W/O CONTRAST CT thoracolumbosacral spine C-. Direct axial images were obtained with coronal, sagittal reconstruction image. Demineralized osseous structures. L3. Extensive comminuted burst fracture of L3 vertebral body with retropulsion is seen. Anterior, lateral cortex is disrupted.. Midline fracture of the posterior lamina at the junction of the spinous processes. The interpeduncular distance measures 27 mm at the L3, versus 26 mm at L4. Maximal loss of vertical height of L3 in comparison to L4, L2 approximately 75-80%. Central spinal canal stenosis. No evidence of significant paraspinal soft tissue swelling. Disc bulge at L2-L3, L3-L4 with central spinal canal stenosis. L4-L5. Disc bulge. Central spinal canal stenosis. Facet joint arthropathy with thickened ligamenta flavum. Prominent circumferential disc bulge. Facet joint arthropathy with thickened ligamentum flavum. Central spinal canal stenosis L5-S1. Posterior annular bulge. Facet joint arthropathy. Normal height of thoracic vertebral bodies. Normal height of intervertebral disc spaces. No evidence of central spinal canal stenosis. Extensive parenchymal or pleural disease is noted in the right apical region with fibrosis microcalcifications. The trachea is deviated to the right side. Please refer to the CT of the chest February 15, 2017. Impression. L3. Extensive comminuted burst fracture of L3 vertebral body with retropulsion. Anterior, lateral cortex is disrupted. Midline fracture of the posterior lamina at the junction of the spinous processes. The interpeduncular distance measures 27 mm at the L3, versus 26 mm at L4. Maximal loss of vertical height of L3 in comparison to L4, L2 approximately 75-80%. Central spinal canal stenosis. 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 The findings were discussed with Dr. Hank Lopez at 12:45 PM. Reported By: Corey Langley MD 04/09/19 1306 Hank Lopez Technologist: Simon Tellez Transcribed Date/Time: 04/09/19 1306 Truck Hopper: Corey Langley Printed Date/Time: By: Medical Decision Making - Medical Decision Making 04/09/19 11:13 79 yo Maori speaking male with h/o arthritis, COPD, HTN, HLD, asthma, CABG who p/w lower back pain s/p mechanical fall. Vitals wnl, AF, A&Ox2. Physical exam notable for difficulty with ambulation. Will obtain lumbar sacral imaging. R/o fracture, subluxation. Low suspicion cauda equina. Denies alarm findings. Denies leg swelling/pain, N/V, F,C, CP, SOB, urinary complaints, perianal parasthesias, incontinence, hematuria, BPR, abdominal pain, diarrhea, lightheadedness, weakness, sensory changes. Ed Course: 04/09/19 13:06 CTH: No acute change CT C-SPINE: No acute change 04/09/19 13:06 Laboratory Tests 04/09/19 04/09/19 11:28 11:28 WBC 5.9 Hgb 9.3 L Hct 27.4 L D Plt Count 365 D Sodium 135 L Potassium 5.2 H BUN 24.6 H Creatinine 1.2 04/09/19 13:10 CT L-SPINE: Impression. L3. Extensive comminuted burst fracture of L3 vertebral body with retropulsion. Anterior, lateral cortex is disrupted. Midline fracture of the posterior lamina at the junction of the spinous processes. The interpeduncular distance measures 27 mm at the L3, versus 26 mm at L4. Maximal loss of vertical height of L3 in comparison to L4, L2 approximately 75-80%. Central spinal canal stenosis. Multilevel lumbosacral spine discogenic disease with central spinal canal stenosis Consulted Dr. Ward, Neurosurgery. Patients needs LSO, outside supply to order Admit pain control, inability to ambulate 04/09/19 15:58 Patient ambulatory with assistance at bedside Stable for d/c with return precautions advised to f/u PMD and neurosurgery Patient discharged on back brace Discharge - Discharge Information Problems reviewed: Yes Clinical Impression/Diagnosis: Burst fracture of lumbar vertebra Qualifiers: Encounter type: initial encounter Fracture type: closed Qualified Code(s): S32.001A - Stable burst fracture of unspecified lumbar vertebra, initial encounter for closed fracture Condition: Stable - Admission Yes - Additional Discharge Information Prescriptions: Acetaminophen [Tylenol -] 325 mg PO Q3H PRN #14 tablet MDD 3 tab PRN Reason: Pain Back Brace [Ultra Support] 1 each MC ONCE #1 each Ibuprofen [Motrin -] 600 mg PO TID PRN #14 tablet MDD 3 tab PRN Reason: Pain - Follow up/Referral Referrals: King Blackburn MD [Primary Care Provider] - Alverto Ward MD [Staff Physician] - - Patient Discharge Instructions Additional Instructions: Please return to the emergency department with any new or worsening symptoms or concerns. Please follow up with your primary care physician within 72 hours. Please follow up with neurosurgery within 72 hours for findings of burst fracture of L3 vertebral body as discussed. Can take Motrin and Tylenol tablet 3 times a day as needed for pain. Please wear back brace daily as directed. - Post Discharge Activity
[2019-04-09 10:31] VITALS: TEMP 97.8; BMI 23.5
[2019-04-09 11:48] LABS: BASO % 0.6 % (0-2.0); EOS % 5.5 % (0-4.5); HEMATOCRIT 27.4 % (35.4-49); HEMOGLOBIN 9.3 GM/dL (11.7-16.9); LYMPH % 24.3 % (8-40); MCH 32.9 pg (25.7-33.7); MCHC 33.9 g/dl (32.0-35.9); MEAN PLT VOLUME 7.9 fl (7.5-11.1); MONO % 13.5 % (3.8-10.2); NEUT % 56.1 % (42.8-82.8); PLATELET COUNT 365 K/MM3 (134-434); RBC 2.82 M/mm3 (4.00-5.60); RDW 15.5 % (11.9-15.9); WHITE BLOOD COUNT 5.9 K/mm3 (4.0-10.0)
[2019-04-09 12:19] LABS: ALBUMIN 2.2 g/dl (3.4-5.0); BILIRUBIN,TOTAL 0.4 mg/dL (0.2-1); BLOOD UREA NITROGEN 24.6 mg/dL (7-18); CALCIUM 8.8 mg/dL (8.5-10.1); CREATININE 1.2 mg/dL (0.55-1.3); POTASSIUM 5.2 mmol/L (3.5-5.1)
[2019-04-09 12:21] LABS: PH,URINE 6.5 (5.0-8.0); URINE APPEARANCE CLEAR; URINE BILIRUBIN NEGATIVE (NEGATIVE); URINE COLOR YELLOW; URINE GLUCOSE (UA) NEGATIVE (NEGATIVE); URINE KETONE NEGATIVE (NEGATIVE); URINE LEUK ESTERASE NEGATIVE (NEGATIVE); URINE NITRITE NEGATIVE (NEGATIVE); URINE PROTEIN NEGATIVE (NEGATIVE)
[2019-04-09] MEDS ORDERED: ACETAMINOPHEN 1000 MG/100 ML VIAL (NON FORMULARY) IVPB ONE (13:19)
[2019-04-09] MEDS ORDERED: ACETAMINOPHEN INJECTION 100 ML IVPB ONE (13:52)
[2019-04-09] MEDS ORDERED: morphine CARPU-JECT 4 MG/1 ML DISP.SYRIN IVPUSH ONE (14:09)
--- NOTE | 2019-04-09 15:18 | EKG ---
Test Reason : Blood Pressure : / mmHG Vent. Rate : 082 BPM Atrial Rate : 082 BPM P-R Int : 150 ms QRS Dur : 082 ms QT Int : 358 ms P-R-T Axes : 067 054 058 degrees QTc Int : 418 ms NORMAL SINUS RHYTHM POSSIBLE LEFT ATRIAL ENLARGEMENT BORDERLINE ECG WHEN COMPARED WITH ECG OF 13-APR-2016 09:34, NO SIGNIFICANT CHANGE WAS FOUND Confirmed by ORLY BA MD ([id number]) on 04/09/2019 3:18:09 PM Referred By: Confirmed By:ORLY BA MD
--- NOTE | 2019-04-09 15:54 | PN ---
Progress Note (short form) - Note Progress Note: NEUROSURGERY CONSULT DICTATED Pt examined at bedside History obtained from CT reviewed h/o BPH, arthritis, COPD, HTN, HLD, asthma, CABG c/o lower back pain s/p mechanical fall on 04/05/18 when ambulating with walker in house. denies patient hitting head, and landing on buttocks. Denies LOC. c/o increasing lower back pain the following day, and was unable to ambulate, or stand. Pain control with pain patches lower back. Denies leg weakness numbness or new B/B dysfunction. PE: AF, VSS General- unremarkable; sitting in wheelchair CN- intact; Motor- 4+-5 B UE/LE inc B DF/PF; Sensation- intact LT; DTR- hyporeflexic; Back- tender LS junction CT- L3 burst fx with central comminution with 25% compromise of canal; generalized osteopenia Acute L3 burst fracture with no significant neurological deficits Rigid LSO brace when OOB No neurosurgical intervention recommended for L3 burst fx at this time given the underlying age and medical conditions as well as intact neuro status Observe neuro/sphinter function (pt will also be on the lookout for such changes ) Pain management if persistent pain Hold NSAIDS for 1 week Combination of neurontin, muscle relaxant and pain meds Pt understands the above D/w ED team
--- NOTE | 2019-04-09 16:08 | PDOC ---
Documentation entered by Marco Pierre SCRIBE, acting as scribe for Buzz Sinclair MD. Buzz Sinclair MD: This documentation has been prepared by the Gabby ewing Xhesika, SCRIBE, under my direction and personally reviewed by me in its entirety. I confirm that the documentation accurately reflects all work, treatment, procedures, and medical decision making performed by me. Attending Attestation - Resident Resident Name: JohnHank - ED Attending Attestation I have performed the following: I have examined & evaluated the patient, The case was reviewed & discussed with the resident, I agree w/resident's findings & plan, Exceptions are as noted - HPI HPI: 04/09/19 15:21 The patient is an 79 year old male with a past medical history of BPH, arthritis , COPD, HTN, HLD, asthma, CABG who presents to the ED with 4 days of lower back pain s/p mechanical fall. notes pt fell trying to ambulate with his walker. denies LOC or head trauma/ injury. notes the patient endorsed lower back pain and inability to ambulate the day after his fall. The patient denies chest pain, shortness of breath, and dizziness. Denies fever , chills, cough, nausea, vomiting, and constipation. Allergy: NKDA Social: Denies alcohol, cigarette or drug use. - Physicial Exam PE: 04/09/19 16:07 Vitals: Triage Vital signs reviewed General Appearance: No acute distress, well nourished well developed, Head: Atraumatic, Cardiac: Regular rate and rhythym, no murmurs, no rubs, no gallops, Lungs: Clear to auscultation bilateral, good air movement bilaterally, Abdomen: Soft, non distended, normal bowel sounds, non tender to palpation Musculoskeletal: Midline low back lumbar tenderness to palpation Extremities: Full range of motion to all extremities, no cyanosis, clubbing, or edema Skin: Warm and dry, no rashes or lesions, no rash, no petechiae Neuro: AOX3; cranial Nerves 2-12 grossly intact, strength intact to all extremities, sensation intact to all extremities, gait normal Psych: Normal mood, normal affect - Medical Decision Making 04/09/19 16:08 Acute lumbosacral vertebral's fracture seen by neurosurgery no acute intervention needed recommends back brace and neurosurgical follow-up Findings, the need for follow-up and strict return instructions discussed with patient.
[2019-04-09 16:23] VITALS: BP 108/56; PULSE 86
--- NOTE | 2019-04-09 22:43 | CONS ---
DATE OF CONSULTATION: 04/09/2019 REQUESTING PHYSICIAN: Buzz Sinclair MD AIR COMPRESSOR MECHANIC: Alverto Ward MD, Neurosurgery CHIEF COMPLAINT: L3 acute fracture. HISTORY OF PRESENT ILLNESS: Patient is an 79-year-old right-handed male with history of hypertension; coronary artery disease, status post bypass; asthma; COPD; osteoarthritis; BPH; and chronic lower back pain, who complained of increasing back pain since last . He fell at home and landed on his feet and hit his head. He did not lose consciousness according to the . He could not get up for a period of time. Afterwards, he had difficulty walking and standing. He denies bowel or bladder incontinence. He has some right-sided ankle and foot pain, but no true sciatica. He has no leg weakness, numbness, or tingling. Has no bowel or bladder dysfunction; specifically, he has no incontinence or retention. PAST MEDICAL HISTORY: Significant for osteoarthritis; BPH; COPD/asthma; hypertension; coronary artery disease, status post bypass; hypercholesterolemia; lower back pain. CURRENT MEDICATIONS: Include baby aspirin, albuterol, Advair, Symbicort, Spiriva, Tylenol, Fosamax, Lumigan, Dexilant, Lasix, Vascepa, Motrin, Mobic, metoprolol, omeprazole, MiraLAX, Flomax, telmisartan, vitamin B. ALLERGIES: There are no known drug allergies. FAMILY HISTORY: Noncontributory. SOCIAL HISTORY: He does not smoke nor does he drink much. He lives at home. He does not use IV drugs. He is retired. REVIEW OF SYSTEMS: Otherwise negative for major constitutional, head and neck, cardiovascular, pulmonary, gastrointestinal, genitourinary, endocrinological, neurological, oncological, or psychological problems except for the above. PHYSICAL EXAMINATION: Vital Signs: Temperature is 97.8. Blood pressure 116/54. His pulse rate is 79. O2 saturation is 99% on room air. HEENT: Normocephalic, atraumatic, anicteric. Neck: Supple with no lymphadenopathy. No carotid bruit. Coronary: Examination demonstrated a regular rhythm. Lungs: Clear to auscultation bilaterally. Abdomen: Benign. Extremities: Examination showed no obvious signs of DVT. Back: Examination of the back shows tenderness at the lumbosacral junction bilaterally. Neurologic: He is awake, alert, oriented x3. He is sitting in a wheelchair. Cranial nerve examination is intact 2-12. Motor examination shows 4+ to 5/5 strength in the bilateral upper and lower extremities. Sensory examination is intact to light touch. Deep tendon reflexes are 1+ throughout. There is no pathological long tract sign. Cerebellar exam demonstrates no tremor at baseline. LABORATORY: Examination shows a white blood cell count of 5.9. Hemoglobin is 9.3. Platelet count is 365,000. Serum sodium is 135, and potassium is 5.2. BUN is 25 and creatinine 1.2. LFTs are generally normal except for a marginally elevated AST of 70. CT scan of the head demonstrated no acute intracranial pathology. There is no fracture or hemorrhage. There is epqi-uh-yxagjaeh atrophy which is age appropriate. CT scan of the cervical spine demonstrated no acute fracture, just straightening of the cervical spine. There was no dislocation. Facet joints were intact. There was degenerative disk disease. CT scan of the lumbar spine demonstrated L3 acute fracture with comminuted burst _ fracture with approximately 25% anterior midline compromise of the spinal canal. The central portion of the vertebral body is collapsed. There is resultant [id number] central stenosis. There is general osteopenia. IMPRESSION: 1. Comminuted L3 burst fracture with secondary spinal stenosis, but no significant neurological deficit. 2. Hypertension/coronary artery disease. 3. Chronic obstructive pulmonary disease/asthma. 4. Gastroesophageal reflux disease. 5. Benign prostatic hypertrophy. 6. Osteoarthritis with chronic lower back pain. RECOMMENDATIONS: Patient presents with a fall several days ago with acute lower back pain. He also has some right lateral calf and ankle pain which is consistent with possible sciatica, but he says no shooting pain. He has no focal significant neurological deficit at this time. Because of his age, concurrent medical conditions as well as relatively intact neurological status, neurosurgical intervention is not indicated nor recommended. A rigid external LSO brace should be obtained for mobilization whenever out of bed, which includes when he is sitting. THe brace should be used for 3 months. Pain medication including stool softeners should be considered. Some muscle relaxant may also be helpful. The patient should have followup upright x-rays of the lumbar spine to be done in 2 weeks to assess his stature and alignment of lumbar spine. If pain remains a factor, pain management consult could be considered. The above was discussed with the patient's and the patient at bedside in the emergency room. All questions were answered. ALVERTO WARD M.D. CECILIO/[id number] MTDD
== END 2019-04-09 16:44 | disposition home or self-care (01) ==
LOC: JER 09:53
PROC: 3E033NZ Introduction of Analgesics, Hypnotics, Sedatives into Peripheral Vein, Percutaneous Approach (ICD-10-PCS; principal; 2019-04-09)
DX: S32.031A Stable burst fracture of third lumbar vertebra, initial encounter for closed fracture (principal); W18.39XA Other fall on same level, initial encounter; Y93.89 Activity, other specified; Y92.038 Other place in apartment as the place of occurrence of the external cause; Y99.8 Other external cause status; I25.810 Atherosclerosis of coronary artery bypass graft(s) without angina pectoris; I10 Essential (primary) hypertension; Z95.1 Presence of aortocoronary bypass graft; E78.5 Hyperlipidemia, unspecified; N40.0 Benign prostatic hyperplasia without lower urinary tract symptoms; J44.9 Chronic obstructive pulmonary disease, unspecified; J45.998 Other asthma; M12.9 Arthropathy, unspecified; Z87.891 Personal history of nicotine dependence; Z99.89 Dependence on other enabling machines and devices
CPT/HCPCS: 36415; 70450-TC; 72125-TC; 72128-TC; 72131-TC; 73562-TC-LT-FY; 80053; 81003; 85025; 87086; 93005; 93010; 96374; 99282-25; J0131

== ENCOUNTER 2019-04-30 09:54 | Inpatient (IN) | payer OTHER ==
--- NOTE | 2019-04-30 10:40 | PDOC ---
History of Present Illness - General Chief Complaint: Pain Stated Complaint: PAIN,NUMBNESS Time Seen by Provider: 04/30/19 10:39 - History of Present Illness Initial Comments: 04/30/19 12:35 79 y/o M hx of BPH, HTN, COPD, HTN, HLD, asthma,arthritis CABG,hip surgeries ( bilaterally) left knee surgery, recent mechanical fall on 04/09/2018 with L3 burst fracture, presnting to the ER with same back pain form that incident which has not improved since that visit. He was discharged with brace and neurosurgery did not recommend surgery due to previous hx of surgeries, age and comorbidities. He reports 9/10 pain in his back which is temporarily relieved when he takes hydrocodone-acetaminophen x2 daily. He denies any further trauma, bowel and bladder symptoms, fevers, chills, nausea, vomiting, Pain is worsened when he stands and improves with lying down. Has been unable to leave his house for follow up appointment with his spine surgeon in [facility]. 04/30/19 12:41 Past History - Past Medical History Allergies/Adverse Reactions: Allergies Allergy/AdvReac Type Severity Reaction Status Date / Time No Known Drug Allergies Allergy Verified 04/13/16 08:19 Home Medications: Ambulatory Orders Atorvastatin Ca [Lipitor] 20 mg PO DAILY 06/05/13 Albuterol Sulfate Inhaler - [Ventolin HFA Inhaler -] 1 - 2 inh PO QID PRN Aspirin [ASA -] 81 mg PO DAILY 04/13/16 Fluticasone/Salmeterol [Advair 250-50 Diskus] 1 each IH PRN 04/13/16 Acetaminophen [Tylenol .Regular Strength -] 325 mg PO Q3H PRN #14 tablet MDD 3 tab 04/09/19 Alendronate Sodium [Fosamax] 1 tab PO WEEKLY 04/09/19 Bimatoprost [Lumigan] 1 drop IO DAILY 04/09/19 Donepezil HCl 5 mg PO HS 04/09/19 Furosemide [Lasix] 20 mg PO DAILY 04/09/19 Ibuprofen [Motrin -] 600 mg PO TID PRN #14 tablet MDD 3 tab 04/09/19 Icosapent Ethyl [Vascepa] 1 gm PO BID 04/09/19 Magnesium Oxide [Mag-Oxide] 400 mg PO DAILY 04/09/19 Omeprazole Magnesium [Prilosec Otc] 40 mg PO DAILY 04/09/19 Polyethylene Glycol 3350 [Miralax 119 gm Btl -] 17 gm PO DAILY 04/09/19 Telmisartan 20 mg PO DAILY 04/09/19 Vitamin B Complex 1 each PO DAILY 04/09/19 Ascorbic Acid [Vitamin C] 1,000 mg PO DAILY 04/30/19 Finasteride 5 mg PO DAILY 04/30/19 Fluticasone/Vilanterol [Breo Ellipta 200-25 Mcg INH] 1 each IH BID 04/30/19 Folic Acid 1 mg PO DAILY 04/30/19 Hydrocodone/Acetaminophen [Hydrocodone-Acetamin 5-325 mg] 1 each PO BID PRN 06/14 Umeclidinium [place] [Incruse Ellipta] 1 puff IH DAILY 04/30/19 Anemia: Yes Asthma: No Cancer: No Cardiac Disorders: Yes (CAD CABG 09/2012) CVA: No COPD: Yes CHF: No Dementia: No Diabetes: No GI Disorders: No Disorders: Yes (BPH) HTN: Yes Hypercholesterolemia: Yes Liver Disease: No Seizures: No Thyroid Disease: No - Surgical History Appendectomy: Yes Cardiac Surgery: Yes (CABG/ BYPASS SURGERY) - Immunization History Immunization Up to Date: Yes - Psycho Social/Smoking Cessation Hx Smoking History: Never smoked Have you smoked in the past 12 months: No If you are a former smoker, when did you quit?: 10 months ago Information on smoking cessation initiated: No Hx Alcohol Use: No Drug/Substance Use Hx: No Substance Use Type: None Hx Substance Use Treatment: No *Physical Exam - Vital Signs Last Vital Signs Temp Pulse Resp BP Pulse Ox 98.2 F 70 18 110/52 L 99 04/30/19 10:09 04/30/19 10:09 04/30/19 10:09 04/30/19 10:04/30/19 10:09 - Physical Exam 04/30/19 12:37 GENERAL: Awake, alert, and fully oriented, in no acute distress HEAD: No signs of trauma, normocephalic, atraumatic EYES: PERRLA, EOMI, sclera anicteric, conjunctiva clear ENT: Auricles normal inspection, hearing grossly normal, nares patent, oropharynx clear without exudates. Moist mucosa NECK: Normal ROM, supple, no lymphadenopathy, JVD, or masses LUNGS: No distress, speaks full sentences, decreased breath sounds at lung bases . HEART: Regular rate and rhythm, normal S1 and S2, no murmurs, rubs or gallops, peripheral pulses normal and equal bilaterally. ABDOMEN: Soft, nontender, normoactive bowel sounds. No guarding, no rebound. No masses EXTREMITIES : Normal inspection, Normal range of motion, no edema. No clubbing or cyanosis NEUROLOGICAL: Cranial nerves II through XII grossly intact. Normal speech, 5/ 5 strength upper extremities, 4/5 strength left upper extremity SKIN: Warm, Dry, normal turgor, no rashes or lesions noted ED Treatment Course - LABORATORY CBC & Chemistry Diagram: 05/03/19 07:47 05/03/19 07:47 Medical Decision Making - Medical Decision Making 04/30/19 12:47 have physical therapy evaluate pt. might need to be admitted for pain control and to start physical therapy. 04/30/19 15:25 Pt evaluated by PT only able to ambulate 15 feet easily fatiqued will admit Labs, EKG then admit. Discharge - Discharge Information Problems reviewed: Yes Clinical Impression/Diagnosis: Back pain Qualifiers: Back pain location: back pain in unspecified location Back pain laterality: unspecified Disposition: INTERMEDIATE FACILITY - Follow up/Referral - Patient Discharge Instructions - Post Discharge Activity
--- NOTE | 2019-04-30 14:53 | PDOC ---
Documentation entered by Greg Duff SCRIBE, acting as scribe for Buffy Sandhu MD. Buffy Sandhu MD: This documentation has been prepared by the Sherin ewing Nirvannie, SCRIBE, under my direction and personally reviewed by me in its entirety. I confirm that the documentation accurately reflects all work, treatment, procedures, and medical decision making performed by me. Attending Attestation - Resident Resident Name: Carlos Robb - ED Attending Attestation I have performed the following: I have examined & evaluated the patient, The case was reviewed & discussed with the resident, I agree w/resident's findings & plan, Exceptions are as noted - HPI HPI: 04/30/19 12:58 The patient is a year old male, with a significant past medical history of HTN, COPD, HLD, asthma,arthritis, s/p CABG, BPH, and recent L3 burst fracture, who presents to the emergency department with persistent back pain. As per family translating, patients back pain has been persistent since his accident. The pain is described as a 9/10, mildly alleviated with Vicodin (BID only alleviates pain for 9 hrs). They note he is primarily bed bound and can only walk 30 ft to the bathroom for BMs. He denies any recent fevers, chills, headache or dizziness. He denies any recent nausea, vomit, diarrhea or constipation. He denies any recent chest pain or shortness of breath. He denies any recent dysuria, frequency, urgency or hematuria. Allergies: NKDA Primary Care Physician: Dr. Blackburn - Physicial Exam PE: 04/30/19 14:26 GENERAL: +Uncomfortably appearing. Awake, alert, and fully oriented, in no acute distress HEAD: No signs of trauma EYES: PERRLA, EOMI, sclera anicteric, conjunctiva clear ENT: Auricles normal inspection, hearing grossly normal, nares patent, oropharynx clear without exudates. Moist mucosa NECK: Normal ROM, supple, no lymphadenopathy, JVD, or masses LUNGS: Breath sounds equal, clear to auscultation bilaterally. No wheezes, and no crackles HEART: Regular rate and rhythm, normal S1 and S2, no murmurs, rubs or gallops ABDOMEN: Soft, nontender, normoactive bowel sounds. No guarding, no rebound. No masses EXTREMITIES: Normal range of motion, no edema. No clubbing or cyanosis. No cords, erythema, or tenderness NEUROLOGICAL: +5/5 Plantar flexion and great toe extension. Cranial nerves II through XII grossly intact. Normal speech. SKIN: Warm, Dry, normal turgor, no rashes or lesions noted. - Medical Decision Making 04/30/19 14:49 Pt presents to the ED complaining of severe back pain and inability to ambulate after diagnosed with L 3 burst fracture on 04/19. Unable to ambulate more than a few feet or perform adls at home. Labs are within normal limits. Seen by PT who feels that the patient is unsafe to go home and needs rehab placement. Will admit to medicine for continued management and rehab placement.
[2019-04-30 15:04] LABS: BASO % 0.7 % (0-2.0); EOS % 2.6 % (0-4.5); HEMATOCRIT 28.6 % (35.4-49); HEMOGLOBIN 9.5 GM/dL (11.7-16.9); LYMPH % 20.9 % (8-40); MCH 31.7 pg (25.7-33.7); MCHC 33.3 g/dl (32.0-35.9); MEAN CELL VOLUME 95.1 fl (80-96); MEAN PLT VOLUME 7.3 fl (7.5-11.1); MONO % 11.6 % (3.8-10.2); NEUT % 64.2 % (42.8-82.8); PLATELET COUNT 454 K/MM3 (134-434); RBC 3.01 M/mm3 (4.00-5.60); RDW 15.1 % (11.9-15.9); WHITE BLOOD COUNT 6.1 K/mm3 (4.0-10.0)
[2019-04-30 15:46] LABS: ALBUMIN 2.2 g/dl (3.4-5.0); BILIRUBIN,TOTAL 0.4 mg/dL (0.2-1); CALCIUM 8.6 mg/dL (8.5-10.1); POTASSIUM 4.3 mmol/L (3.5-5.1); TOT PROT 7.3 g/dl (6.4-8.2)
--- NOTE | 2019-04-30 18:37 | HP ---
Admitting History and Physical - Primary Care Physician PCP: Jamal Marques - Admission History of Present Illness: 79 y/o M hx of BPH, HTN, COPD, HTN, HLD, asthma,arthritis CABG,hip surgeries ( bilaterally) left knee surgery, recent mechanical fall on 04/09/2018 with L3 burst fracture, presnting to the ER with same back pain form that incident which has not improved since that visit. He was discharged with brace and neurosurgery did not recommend surgery due to previous hx of surgeries, age and comorbidities. He reports 9/10 pain in his back which is temporarily relieved when he takes hydrocodone-acetaminophen x2 daily. He denies any further trauma, bowel and bladder symptoms, fevers, chills, nausea, vomiting, Pain is worsened when he stands and improves with lying down. Has been unable to leave his house for follow up appointment with his spine surgeon in [facility]. - Past Medical History Cardiovascular: Yes: CAD, HTN, Hyperlipdemia Pulmonary: Yes: Asthma - Past Surgical History Past Surgical History: Yes: Appendectomy, CABG, Stent - Smoking History Smoking history: Never smoked Have you smoked in the past 12 months: No If you are a former smoker, when did you quit?: 10 months ago - Alcohol/Substance Use Hx Alcohol Use: No History of Substance Use: reports: None - Social History ADL: Independent Occupation: retired History of Recent Travel: No Home Medications - Allergies Allergies/Adverse Reactions: Allergies Allergy/AdvReac Type Severity Reaction Status Date / Time No Known Drug Allergies Allergy Verified 04/13/16 08:19 - Home Medications Home Medications: Ambulatory Orders Atorvastatin Ca [Lipitor] 20 mg PO DAILY 06/05/13 Albuterol Sulfate Inhaler - [Ventolin HFA Inhaler -] 1 - 2 inh PO QID PRN Aspirin [ASA -] 81 mg PO DAILY 04/13/16 Fluticasone/Salmeterol [Advair 250-50 Diskus] 1 each IH PRN 04/13/16 Acetaminophen [Tylenol .Regular Strength -] 325 mg PO Q3H PRN #14 tablet MDD 3 tab 04/09/19 Alendronate Sodium [Fosamax] 1 tab PO WEEKLY 04/09/19 Bimatoprost [Lumigan] 1 drop IO DAILY 04/09/19 Donepezil HCl 5 mg PO HS 04/09/19 Furosemide [Lasix] 20 mg PO DAILY 04/09/19 Ibuprofen [Motrin -] 600 mg PO TID PRN #14 tablet MDD 3 tab 04/09/19 Icosapent Ethyl [Vascepa] 1 gm PO BID 04/09/19 Magnesium Oxide [Mag-Oxide] 400 mg PO DAILY 04/09/19 Omeprazole Magnesium [Prilosec Otc] 40 mg PO DAILY 04/09/19 Polyethylene Glycol 3350 [Miralax 119 gm Btl -] 17 gm PO DAILY 04/09/19 Telmisartan 20 mg PO DAILY 04/09/19 Vitamin B Complex 1 each PO DAILY 04/09/19 Ascorbic Acid [Vitamin C] 1,000 mg PO DAILY 04/30/19 Finasteride 5 mg PO DAILY 04/30/19 Fluticasone/Vilanterol [Breo Ellipta 200-25 Mcg INH] 1 each IH BID 04/30/19 Folic Acid 1 mg PO DAILY 04/30/19 Hydrocodone/Acetaminophen [Hydrocodone-Acetamin 5-325 mg] 1 each PO BID PRN 06/14 Umeclidinium [place] [Incruse Ellipta] 1 puff IH DAILY 04/30/19 Physical Examination Vital Signs: Vital Signs Temperature 98.5 F 04/30/19 14:51 Pulse Rate 71 04/30/19 14:51 Respiratory Rate 14 04/30/19 14:51 Blood Pressure 107/58 L 04/30/19 14:51 O2 Sat by Pulse Oximetry (%) 99 04/30/19 14:51 Constitutional: Yes: No Distress HENT: Yes: Atraumatic Neck: Yes: Supple Respiratory: Yes: CTA Bilaterally Extremities: Yes: WNL Edema: No Peripheral Pulses WNL: Yes Neurological: Yes: Alert, Oriented Labs: CBC, BMP 04/30/19 14:35 04/30/19 14:35 Problem List - Problems (1) Fall Assessment/Plan: PT EVAL Code(s): W19.XXXA - UNSPECIFIED FALL, INITIAL ENCOUNTER (2) ASHD (arteriosclerotic heart disease) Code(s): I25.10 - ATHSCL HEART DISEASE OF [place] CORONARY ARTERY W/O ANG PCTRS (3) BPH (benign prostatic hyperplasia) Code(s): N40.0 - BENIGN PROSTATIC HYPERPLASIA WITHOUT LOWER URINRY TRACT SYMP (4) Burst fracture of lumbar vertebra Assessment/Plan: NEURO SURGERY FOLLOW UP Code(s): S32.001A - STABLE BURST FRACTURE OF UNSP LUMBAR VERTEBRA, INIT (5) HLD (hyperlipidemia) Assessment/Plan: ON MEDS Code(s): E78.5 - HYPERLIPIDEMIA, UNSPECIFIED (6) HTN (hypertension) Assessment/Plan: ON MEDS Code(s): I10 - ESSENTIAL (PRIMARY) HYPERTENSION Assessment/Plan Laboratory Tests 04/30/19 04/30/19 14:35 14:35 WBC 6.1 RBC 3.01 L Hgb 9.5 L Hct 28.6 L MCV 95.1 MCH 31.7 MCHC 33.3 RDW 15.1 Plt Count 454 H D MPV 7.3 L Absolute Neuts (auto) 3.9 Neutrophils % 64.2 Lymphocytes % 20.9 Monocytes % 11.6 H Eosinophils % 2.6 Basophils % 0.7 Nucleated RBC % 0 Sodium 135 L Potassium 4.3 Chloride 105 Carbon Dioxide 23 Anion Gap 7 L BUN 18.0 Creatinine 1.0 Est GFR (CKD-EPI)AfAm 82.02 Est GFR (CKD-EPI)NonAf 70.77 Random Glucose 109 H Calcium 8.6 Total Bilirubin 0.4 AST 71 H ALT 72 H Alkaline Phosphatase 84 Total Protein 7.3 Albumin 2.2 L Active Medications Generic Name Dose Route Start Last Admin Trade Name Freq PRN Reason Stop Dose Admin Aspirin 81 mg 05/01/19 10:00 Asa - PO DAILY REPLACED BY [facility] Atorvastatin Calcium 20 mg 04/30/19 22:00 Lipitor - PO HS ELIZABETH Finasteride 5 mg 05/01/19 10:00 Proscar - PO DAILY REPLACED BY [facility] Heparin Sodium (Porcine) 5,000 unit 04/30/19 22:00 Heparin - SQ BID ELIZABETH Non-Formulary Medication 1 drop 05/01/19 10:00 Bimatoprost [Lumigan] IO DAILY ELIZABETH Oxycodone HCl 10 mg 04/30/19 18:39 Roxicodone - PO Q6H PRN PAIN LEVEL 6-10 Polyethylene Glycol 17 gm 04/30/19 22:00 Miralax (For Daily Use) - PO BID ELIZABETH Valsartan 80 mg 05/01/19 10:00 Diovan - PO DAILY ELIZABETH PLAN CONTINUE HOME MED WILL GET ORTHO/NEUROSURGERY INVOLVED PT EVAL PRN PAIN MEDS
[2019-04-30] MEDS: oxyCODONE HCL 5 MG TABLET PO PRN (22:01)
[2019-04-30] MEDS: HEPARIN NA (PORCINE) 5,000 UNITS/ML 1ML VIAL SQ SCH (22:03)
[2019-04-30] MEDS: POLYETHYLENE GLYCOL 3350 119 GM BTL PO SCH (22:03)
[2019-04-30] MEDS: ATORVASTATIN CA 20 MG TABLET (FP) PO SCH (22:03)
[2019-04-30 22:41] VITALS: BMI 25.8
--- NOTE | 2019-05-01 08:11 | CONSULT ---
Consult - text type - Consultation Consultation Note: ORTHOPEDIC SURGERY CONSULTATION NOTE Department of Orthopedic Surgery HISTORY OF PRESENT ILLNESS Mr. Ward is a 79 year old male who presents to [facility] with low back pain. The orthopedic service was consulted for an L3 burst fracture. The injury occurred on 04/09/2019 after a fall. The patient was admitted at that time and seen by neurosurgery. They recommended non-operative treatment at that time. The patient notes significant pain in his lumbar spine. Denies any other injuries. Denies numbness, tingling, saddle parasthesias, bowel/bladder incontinence, or other constitutional complaints. Denies tobacco use, drug use, alcohol abuse. The patient lives with family and uses no assistive devices at baseline. FAMILY HISTORY non-contributory REVIEW OF SYMPTOMS A twelve-point review of systems was performed and was negative except as noted in HPI. PHYSICAL EXAM Constitutional: Alert and oriented to person, place, and time. Appears well- developed and well-nourished. No acute distress, appropriate mood and affect. Right Upper Extremity: Skin warm, dry, and intact; no lesions, rashes or ulcers noted. Muscle mass equal and symmetric to contralateral side. No atrophy noted. No masses or effusions noted. No tenderness to palpation all joints; nontender throughout rest of extremity. Full passive and active ROM, free from pain. Joints stable with no pathologic laxity. M/R/U/MSK/AX motor intact; SILT distally; 2+ radial pulses; Cap refill brisk. Tone and reflexes normal. Left Upper Extremity: Skin warm, dry, and intact; no lesions, rashes or ulcers noted. Muscle mass equal and symmetric to contralateral side. No atrophy noted. No masses or effusions noted. No tenderness to palpation all joints; nontender throughout rest of extremity. Full passive and active ROM, free from pain. Joints stable with no pathologic laxity. M/R/U/MSK/AX motor intact; SILT distally; 2+ radial pulses; Cap refill brisk. Tone and reflexes normal. Right Lower Extremity: Skin warm, dry, and intact; no lesions, rashes or ulcers noted. Muscle mass equal and symmetric to contralateral side. No atrophy noted. No masses or effusions noted. No tenderness to palpation all joints; nontender throughout rest of extremity. No cords or calf tenderness No significant calf/ankle edema. Full passive and active ROM, free from pain. Joints stable with no pathologic laxity. EHL/TA/GS motor intact; SILT distally; 2+ DP pulses; Cap refill brisk. Tone and reflexes normal. Left Lower Extremity: Skin warm, dry, and intact; no lesions, rashes or ulcers noted. Muscle mass equal and symmetric to contralateral side. No atrophy noted. No masses or effusions noted. No tenderness to palpation all joints; nontender throughout rest of extremity. No cords or calf tenderness No significant calf/ankle edema. Full passive and active ROM, free from pain. Joints stable with no pathologic laxity. EHL/TA/GS motor intact; SILT distally; 2+ DP pulses; Cap refill brisk. Tone and reflexes normal. Back: +TTP over lumbar spinous process. No step offs noted. No ecchymosis or skin lesions seen. Active Problems Problem Status Category Onset Fall Acute Medical Past Medical History Cardio/Vascular CAD,HTN,Hyperlipdemia Pulmonary Asthma Past Surgical History Past Surgical History Appendectomy,CABG,Stent Social History Smoking history Never smoked If you are a former smoker, 10 months ago when did you quit? Hx Alcohol Use No History of Substance Use None ADL Independent Occupation retired History of Recent Travel No Allergies Allergy/AdvReac Type Severity Reaction Status Date / Time No Known Drug Allergies Allergy Verified 04/13/16 08:19 Active Medications Generic Name Dose Route Start Last Admin Trade Name Freq PRN Reason Stop Dose Admin Aspirin 81 mg 05/01/19 10:00 Asa - PO DAILY [facility] Atorvastatin Calcium 20 mg 04/30/19 22:00 04/30/19 22:03 Lipitor - PO 20 mg HS ELIZABETH Administration Finasteride 5 mg 05/01/19 10:00 Proscar - PO DAILY ELIZABETH Heparin Sodium (Porcine) 5,000 unit 04/30/19 22:00 04/30/19 22:03 Heparin - SQ 5,000 unit BID ELIZABETH Administration Non-Formulary Medication 1 drop 05/01/19 10:00 Bimatoprost [Lumigan] IO DAILY ELIZABETH Oxycodone HCl 10 mg 04/30/19 18:39 04/30/19 22:01 Roxicodone - PO 10 mg Q6H PRN Administration PAIN LEVEL 6-10 Polyethylene Glycol 17 gm 04/30/19 22:00 04/30/19 22:03 Miralax (For Daily Use) - PO 17 gm BID ELIZABETH Administration Valsartan 80 mg 05/01/19 10:00 Diovan - PO DAILY [facility] Vital Signs (last) Temp Pulse Resp BP Pulse Ox 98.4 F 87 20 127/70 99 05/01/19 06:21 05/01/19 06:21 05/01/19 06:21 05/01/19 06:21 04/30/19 21:20 Intake and Output 04/29/19 04/30/19 05/01/19 23:59 23:59 23:59 Intake Total 300 300 Output Total 200 600 Balance 100 -300 Intake: Oral 300 300 Output: Urine 200 600 Void 200 600 Other: Voiding Method Urinal Bowel Movement No No Weight 141 lb 3.2 oz Height 5 ft 2 in Body Mass Index (BMI) 25.8 Weight Measurement Method [facility] Weight Measurement Method Est/Stated by Patient Laboratory 04/30/19 14:35 04/30/19 14:35 IMAGING I personally reviewed all radiographs, CT, and other imaging from 04/09/2019. They demonstrate an L3 burst fracture. ASSESSMENT AND PLAN Mr. Ward is a 79 year old male presenting status post mechanical fall on 2019, with an L3 burst fracture, with continued pain. We have reviewed the imaging and clinical findings in detail, as well as their potential implications. After appropriate informed discussion, we agreed on the following plan. 1. Pain control 2. DVT ppx 3. Recommend Neurosurgery consult (Dr. Alverto Ward saw patient previously) 4. May consider updated imaging if indicated 5. Continue medical management 6. No further orthopedic surgical intervention at this time. All questions were answered. Thank you for involving our team in the care of this patient.
--- NOTE | 2019-05-01 09:05 | PN ---
Progress Note (short form) - Note Progress Note: NEUROSURGERY Pt examined h/o BPH, arthritis, COPD, HTN, asthma, CABG c/o lower back pain s/p mechanical fall on 04/05/18 when ambulating with his walker at home. Pt had reportedly hit his head, and landing on buttocks. Denies LOC. More LBP next day and was unable to ambulate, or stand. Pain control with pain patches lower back. Denies leg weakness numbness or new B/B dysfunction. Was in [facility] ED and advised to be admitted for PT/rehab and for LSO brace. Pt declined to be followed locally despite f/u from our office to ascertain he sees a physician/ specialist and uses a back brace. He/family wanted to see Dr Blackburn, an orthopedic surgeon, in [place]. Family subsequently brought pt in stating that he has been on bedrest and not ambulatory much. Pain 9/ and involved B hand, wrist, forearm, back, hips. No B/B dysfunction. PE: AF, VSS; sitting up in bed General- unremarkable CN- intact; Motor- 4 B UE/LE inc B DF/PF, pain limited; Sensation- intact LT; DTR- hyporeflexic; Back- tender LS junction/hips CT- L3 burst fx with central comminution with 25% compromise of canal; generalized osteopenia Acute L3 burst fracture with no significant neurological deficits Rigid LSO brace when OOB (family has brace at home) Have family bring in brace. If rigid brace and fitting well does not need new brace F/u LS spine x-ray to assess alignment Neurosurgical intervention not recommended for L3 burst fx at this time given the underlying age and medical conditions as well as relatively intact neuro status Observe neuro/sphincter function Pain management if persistent pain Rehab Combination of neurontin, muscle relaxant and pain meds Pt understands the above
--- NOTE | 2019-05-01 09:27 | EKG ---
Test Reason : Blood Pressure : / mmHG Vent. Rate : 072 BPM Atrial Rate : 072 BPM P-R Int : 142 ms QRS Dur : 082 ms QT Int : 376 ms P-R-T Axes : 059 056 057 degrees QTc Int : 411 ms SINUS RHYTHM WITH PREMATURE ATRIAL COMPLEXES OTHERWISE NORMAL ECG WHEN COMPARED WITH ECG OF 09-APR-2019 12:33, PREMATURE ATRIAL COMPLEXES ARE NOW PRESENT Confirmed by Giovanni Rangel MD ([id number]) on 05/01/2019 9:27:13 AM Referred By: Confirmed By:Giovanni Rangel MD
[2019-05-01] MEDS: ASPIRIN 81 MG CHEWABLE TABLETS PO SCH (09:52)
[2019-05-01] MEDS: FINASTERIDE 5 MG TABLET (FP) PO SCH (09:52)
[2019-05-01] MEDS: HEPARIN NA (PORCINE) 5,000 UNITS/ML 1ML VIAL SQ SCH ×2 (09:52→22:07)
[2019-05-01] MEDS: VALSARTAN 80 MG TABLET (UD) PO SCH (09:52)
[2019-05-01] MEDS: oxyCODONE HCL 5 MG TABLET PO PRN ×2 (09:52→17:00)
[2019-05-01] MEDS: POLYETHYLENE GLYCOL 3350 119 GM BTL PO SCH ×2 (09:53→22:08)
[2019-05-01] MEDS ORDERED: PATIENT'S OWN MEDICATION (NON-FORMULARY) (Telmisartan [Telmisartan] 20 MG) PO SCH (10:00)
[2019-05-01] MEDS ORDERED: PATIENT'S OWN MEDICATION (NON-FORMULARY) (Bimatoprost [Lumigan] 1 DROP) IO SCH (10:00)
[2019-05-01] MEDS: GABAPENTIN 100 MG CAPSULE PO SCH ×2 (13:59→22:11)
[2019-05-01] MEDS: TIZANIDINE HCL 2 MG TABLET PO PRN ×2 (13:59→22:11)
--- NOTE | 2019-05-01 18:54 | PN ---
Progress Note, Physician - Current Medication List Current Medications: Active Medications Aspirin (Asa -) 81 mg PO DAILY [facility] Last Admin: 05/01/19 09:52 Dose: 81 mg Atorvastatin Calcium (Lipitor -) 20 mg PO HS [facility] Last Admin: 04/30/19 22:03 Dose: 20 mg Finasteride (Proscar -) 5 mg PO DAILY [facility] Last Admin: 05/01/19 09:52 Dose: 5 mg Gabapentin (Neurontin -) 100 mg PO TID [facility] Last Admin: 05/01/19 13:59 Dose: 100 mg Heparin Sodium (Porcine) (Heparin -) 5,000 unit SQ BID [facility] Last Admin: 05/01/19 09:52 Dose: 5,000 unit Non-Formulary Medication (Bimatoprost [Lumigan]) 1 drop IO DAILY [facility] Oxycodone HCl (Roxicodone -) 10 mg PO Q6H PRN PRN Reason: PAIN LEVEL 6-10 Last Admin: 05/01/19 17:00 Dose: 10 mg Polyethylene Glycol (Miralax (For Daily Use) -) 17 gm PO BID [facility] Last Admin: 05/01/19 09:53 Dose: 17 gm Tizanidine HCl (Tizanidine Hcl) 2 mg PO Q8H PRN PRN Reason: MUSCLE SPASMS Last Admin: 05/01/19 13:59 Dose: 2 mg Valsartan (Diovan -) 80 mg PO DAILY [facility] Last Admin: 05/01/19 09:52 Dose: 80 mg - Objective Vital Signs: Vital Signs Temperature 98.9 F 05/01/19 13:51 Pulse Rate 82 05/01/19 13:51 Respiratory Rate 20 05/01/19 13:51 Blood Pressure 104/50 L 05/01/19 13:51 O2 Sat by Pulse Oximetry (%) 99 05/01/19 09:00 Constitutional: Yes: No Distress HENT: Yes: Atraumatic Neck: Yes: Supple Cardiovascular: Yes: Regular Rate and Rhythm Respiratory: Yes: CTA Bilaterally Gastrointestinal: Yes: Normal Bowel Sounds Extremities: Yes: WNL Edema: No Peripheral Pulses WNL: Yes Neurological: Yes: Alert Labs: CBC, BMP 04/30/19 14:35 04/30/19 14:35 Problem List - Problems (1) Fall Assessment/Plan: PT EVAL Code(s): W19.XXXA - UNSPECIFIED FALL, INITIAL ENCOUNTER (2) ASHD (arteriosclerotic heart disease) Code(s): I25.10 - ATHSCL HEART DISEASE OF [place] CORONARY ARTERY W/O ANG PCTRS (3) BPH (benign prostatic hyperplasia) Code(s): N40.0 - BENIGN PROSTATIC HYPERPLASIA WITHOUT LOWER URINRY TRACT SYMP (4) Burst fracture of lumbar vertebra Assessment/Plan: NEURO SURGERY FOLLOW UP...SO SURGERY NEEDED Code(s): S32.001A - STABLE BURST FRACTURE OF UNSP LUMBAR VERTEBRA, INIT (5) HLD (hyperlipidemia) Assessment/Plan: ON MEDS Code(s): E78.5 - HYPERLIPIDEMIA, UNSPECIFIED (6) HTN (hypertension) Code(s): I10 - ESSENTIAL (PRIMARY) HYPERTENSION Assessment/Plan SOCIAL WORK CONSULT
--- NOTE | 2019-05-01 22:03 | PN ---
Mental Health Exam - Mental Status Exam Alert and Oriented to: Time, Place, Person Cognitive Function: Grossly Intact Patient Appearance: Well Groomed Mood: Apprehensive, Hopeful Affect: Appropriate Patient Behavior: Talkative, Cooperative Speech Pattern: Clear, Rambling Voice Loudness: Mildly Loud Thought Process: Intact Thought Disorder: Not Present Hallucinations: None Suicidal Ideation: None, Denies (Per family its was cultulure specific statement , that he gives up, but no active plan or current ideation. ) Homicidal Ideation: None Insight/Judgement: Fair Sleep: Fair Appetite: Fair Muscle strength/Tone: Moderate Hypotonicity Gait/Station: Deferred Additional Comments: This is an 79 yo icelandic speaking male who is seen in bed, resting, dry mouth. He is admitted s/p a fall with a fracture. He has a history of arterio-sclerotic heart, BPH, HTN. We reached his son Aurelia at [phone]. He is his HCP, is gave history and help intrepet for Mr Ward. Apparently Mr kristopher gave a statement "i will rather see ", that was intrepeted as a suicidal ideation. Currently denies any suicidal plan, stating "my brain is normal". He gave a litany of his medical history, multiple surgery and treatment in [facility]. Denies any psychiatric history. Sleep pattern and diet is fair. He is alert orientated, is goal orientated, related with son and his . Plan. May discontinue 1;1 , as he is not imminent danger of hurting self on purpose. Fall risk, pain management. Continue gapapentin as ordered.
[2019-05-01] MEDS: ATORVASTATIN CA 20 MG TABLET (FP) PO SCH (22:07)
[2019-05-02] MEDS: GABAPENTIN 100 MG CAPSULE PO SCH ×3 (06:29→22:00)
[2019-05-02] MEDS: oxyCODONE HCL 5 MG TABLET PO PRN ×3 (06:29→22:04)
[2019-05-02] MEDS: TIZANIDINE HCL 2 MG TABLET PO PRN ×2 (06:29→22:01)
--- NOTE | 2019-05-02 08:13 | CON.PULM ---
Consult Consult Specialty:: PULM/ CCM Referred by:: GLENNA Reason for Consultation:: COPD - History of Present Illness Chief Complaint: Back pain History of Present Illness: 79 M, BPH, HTN, COPD due to previous smoking (stopped 2 years ago), HTN, HLD, arthritis CABG, bilateral hip surgeries, left knee surgery, recent mechanical fall on 04/09/2018 with L3 burst fracture. Admitted via the ER due to intractable pain. Denies CP or SOB. Denies increase cough, sputum production, etc. No fever or chills. Follows with Dr Varela in the office. - History Source History Provided By: Patient, Family Member Limitations to Obtaining History: No Limitations - Past Medical History Cardio/Vascular: Yes: CAD, HTN, Hyperlipdemia Pulmonary: Yes: Bronchitis, COPD. No: Cancer, O2 Dependent, Pneumonia, Previously Intubated, Pulmonary Embolus, Pulmonary Fibrosis, Sleep Apnea - Past Surgical History Past Surgical History: Yes: Appendectomy, CABG, Stent - Alcohol/Substance Use Hx Alcohol Use: No History of Substance Use: reports: None - Smoking History Smoking history: Never smoked Have you smoked in the past 12 months: No If you are a former smoker, when did you quit?: 10 months ago - Social History ADL: Independent Occupation: retired History of Recent Travel: No Home Medications - Allergies Allergies/Adverse Reactions: Allergies Allergy/AdvReac Type Severity Reaction Status Date / Time No Known Drug Allergies Allergy Verified 04/13/16 08:19 - Home Medications Home Medications: Ambulatory Orders Atorvastatin Ca [Lipitor] 20 mg PO DAILY 06/05/13 Albuterol Sulfate Inhaler - [Ventolin HFA Inhaler -] 1 - 2 inh PO QID PRN Aspirin [ASA -] 81 mg PO DAILY 04/13/16 Fluticasone/Salmeterol [Advair 250-50 Diskus] 1 each IH PRN 04/13/16 Acetaminophen [Tylenol .Regular Strength -] 325 mg PO Q3H PRN #14 tablet MDD 3 tab 04/09/19 Alendronate Sodium [Fosamax] 1 tab PO WEEKLY 04/09/19 Bimatoprost [Lumigan] 1 drop IO DAILY 04/09/19 Donepezil HCl 5 mg PO HS 04/09/19 Furosemide [Lasix] 20 mg PO DAILY 04/09/19 Ibuprofen [Motrin -] 600 mg PO TID PRN #14 tablet MDD 3 tab 04/09/19 Icosapent Ethyl [Vascepa] 1 gm PO BID 04/09/19 Magnesium Oxide [Mag-Oxide] 400 mg PO DAILY 04/09/19 Omeprazole Magnesium [Prilosec Otc] 40 mg PO DAILY 04/09/19 Polyethylene Glycol 3350 [Miralax 119 gm Btl -] 17 gm PO DAILY 04/09/19 Telmisartan 20 mg PO DAILY 04/09/19 Vitamin B Complex 1 each PO DAILY 04/09/19 Ascorbic Acid [Vitamin C] 1,000 mg PO DAILY 04/30/19 Finasteride 5 mg PO DAILY 04/30/19 Fluticasone/Vilanterol [Breo Ellipta 200-25 Mcg INH] 1 each IH BID 04/30/19 Folic Acid 1 mg PO DAILY 04/30/19 Hydrocodone/Acetaminophen [Hydrocodone-Acetamin 5-325 mg] 1 each PO BID PRN 06/14 Umeclidinium [place] [Incruse Ellipta] 1 puff IH DAILY 04/30/19 Review of Systems - Review of Systems Constitutional: denies: Chills, Fever Eyes: reports: No Symptoms HENT: reports: No Symptoms Neck: reports: No Symptoms Cardiovascular: denies: Chest Pain, Edema, Palpitations, Shortness of Breath Respiratory: denies: Cough, Hemoptysis, Orthopnea, PND, Snoring, SOB, SOB on Exertion, Wheezing Gastrointestinal: reports: No Symptoms Genitourinary: reports: No Symptoms Breasts: reports: No Symptoms Reported Musculoskeletal: reports: Back Pain Integumentary: reports: No Symptoms Neurological: reports: No Symptoms Endocrine: reports: No Symptoms Hematology/Lymphatic: reports: No Symptoms Psychiatric: reports: No Symptoms Physical Exam Vital Sings: Vital Signs Temperature 99.0 F 05/02/19 06:02 Pulse Rate 78 05/02/19 06:02 Respiratory Rate 20 05/02/19 06:02 Blood Pressure 101/48 L 05/02/19 06:02 O2 Sat by Pulse Oximetry (%) 99 05/01/19 21:00 Constitutional: Yes: No Distress, Calm, Thin Eyes: Yes: Conjunctiva Clear, EOM Intact HENT: Yes: Atraumatic, Normocephalic Neck: Yes: Supple, Trachea Midline Cardiovascular: Yes: Regular Rate and Rhythm Respiratory: Yes: CTA Bilaterally. No: Rales, Rhonchi, SOB, SOB on Exertion, Stridor, Tachypnea, Wheezes ...Inspection: Yes: WNL ...Clubbing: No Gastrointestinal: Yes: Normal Bowel Sounds, Soft Renal/: Yes: WNL Musculoskeletal: Yes: Back Pain Extremities: Yes: WNL Edema: No Peripheral Pulses WNL: Yes Integumentary: Yes: WNL Neurological: Yes: WNL, Alert, Oriented ...Motor Strength: WNL Psychiatric: Yes: WNL, Alert, Oriented Labs: CBC, BMP 04/30/19 14:35 04/30/19 14:35 Problem List - Problems (1) COPD (chronic obstructive pulmonary disease) Code(s): J44.9 - CHRONIC OBSTRUCTIVE PULMONARY DISEASE, UNSPECIFIED (2) Fall Code(s): W19.XXXA - UNSPECIFIED FALL, INITIAL ENCOUNTER (3) ASHD (arteriosclerotic heart disease) Code(s): I25.10 - ATHSCL HEART DISEASE OF [place] CORONARY ARTERY W/O ANG PCTRS (4) BPH (benign prostatic hyperplasia) Code(s): N40.0 - BENIGN PROSTATIC HYPERPLASIA WITHOUT LOWER URINRY TRACT SYMP (5) Burst fracture of lumbar vertebra Code(s): S32.001A - STABLE BURST FRACTURE OF UNSP LUMBAR VERTEBRA, INIT (6) HLD (hyperlipidemia) Code(s): E78.5 - HYPERLIPIDEMIA, UNSPECIFIED (7) HTN (hypertension) Code(s): I10 - ESSENTIAL (PRIMARY) HYPERTENSION (8) S/P CABG (coronary artery bypass graft) Code(s): Z95.1 - PRESENCE OF AORTOCORONARY BYPASS GRAFT Assessment/Plan Patient may use home meds if her remains admitted O2 as needed No smoking VTE prophylaxis There is no Pulmonary contraindication for discharge Will follow if remains admitted Thank you. Dr Scherer
[2019-05-02] MEDS: FINASTERIDE 5 MG TABLET (FP) PO SCH (09:56)
[2019-05-02] MEDS: VALSARTAN 80 MG TABLET (UD) PO SCH (09:56)
[2019-05-02] MEDS: ASPIRIN 81 MG CHEWABLE TABLETS PO SCH (09:56)
[2019-05-02] MEDS: HEPARIN NA (PORCINE) 5,000 UNITS/ML 1ML VIAL SQ SCH ×2 (09:56→21:59)
[2019-05-02] MEDS: POLYETHYLENE GLYCOL 3350 119 GM BTL PO SCH ×2 (09:57→21:59)
--- NOTE | 2019-05-02 12:36 | PN ---
Progress Note, Physician - Current Medication List Current Medications: Active Medications Aspirin (Asa -) 81 mg PO DAILY [facility] Last Admin: 05/02/19 09:56 Dose: 81 mg Atorvastatin Calcium (Lipitor -) 20 mg PO HS [facility] Last Admin: 05/01/19 22:07 Dose: 20 mg Finasteride (Proscar -) 5 mg PO DAILY [facility] Last Admin: 05/02/19 09:56 Dose: 5 mg Gabapentin (Neurontin -) 100 mg PO TID [facility] Last Admin: 05/02/19 06:29 Dose: 100 mg Heparin Sodium (Porcine) (Heparin -) 5,000 unit SQ BID [facility] Last Admin: 05/02/19 09:56 Dose: 5,000 unit Non-Formulary Medication (Bimatoprost [Lumigan]) 1 drop IO DAILY [facility] Oxycodone HCl (Roxicodone -) 10 mg PO Q6H PRN PRN Reason: PAIN LEVEL 6-10 Last Admin: 05/02/19 06:29 Dose: 10 mg Polyethylene Glycol (Miralax (For Daily Use) -) 17 gm PO BID [facility] Last Admin: 05/02/19 09:57 Dose: 17 gm Tizanidine HCl (Tizanidine Hcl) 2 mg PO Q8H PRN PRN Reason: MUSCLE SPASMS Last Admin: 05/02/19 06:29 Dose: 2 mg Valsartan (Diovan -) 80 mg PO DAILY [facility] Last Admin: 05/02/19 09:56 Dose: 80 mg - Objective Vital Signs: Vital Signs Temperature 97.9 F 05/02/19 09:43 Pulse Rate 88 05/02/19 09:43 Respiratory Rate 17 05/02/19 09:43 Blood Pressure 102/54 L 05/02/19 09:43 O2 Sat by Pulse Oximetry (%) 97 05/02/19 09:00 Constitutional: Yes: No Distress HENT: Yes: Atraumatic Neck: Yes: Supple Cardiovascular: Yes: Regular Rate and Rhythm Respiratory: Yes: CTA Bilaterally Gastrointestinal: Yes: Normal Bowel Sounds Extremities: Yes: WNL Edema: No Peripheral Pulses WNL: Yes Neurological: Yes: Alert, Oriented Labs: CBC, BMP 04/30/19 14:35 04/30/19 14:35 Problem List - Problems (1) Fall Assessment/Plan: FOR REHAB PLACEMENT Code(s): W19.XXXA - UNSPECIFIED FALL, INITIAL ENCOUNTER (2) ASHD (arteriosclerotic heart disease) Code(s): I25.10 - ATHSCL HEART DISEASE OF [place] CORONARY ARTERY W/O ANG PCTRS (3) BPH (benign prostatic hyperplasia) Code(s): N40.0 - BENIGN PROSTATIC HYPERPLASIA WITHOUT LOWER URINRY TRACT SYMP (4) Burst fracture of lumbar vertebra Assessment/Plan: NEURO SURGERY FOLLOW UP...SO SURGERY NEEDED Code(s): S32.001A - STABLE BURST FRACTURE OF UNSP LUMBAR VERTEBRA, INIT (5) HLD (hyperlipidemia) Assessment/Plan: ON MEDS Code(s): E78.5 - HYPERLIPIDEMIA, UNSPECIFIED (6) HTN (hypertension) Code(s): I10 - ESSENTIAL (PRIMARY) HYPERTENSION
--- NOTE | 2019-05-02 19:19 | DS ---
Physical Examination Vital Signs: Vital Signs Temperature 98.4 F 05/02/19 15:03 Pulse Rate 90 05/02/19 15:03 Respiratory Rate 18 05/02/19 15:03 Blood Pressure 110/50 L 05/02/19 15:03 O2 Sat by Pulse Oximetry (%) 97 05/02/19 09:00 Labs: CBC, BMP 04/30/19 14:35 04/30/19 14:35 Discharge Summary Reason For Visit: BURST FRACTURE OF LUMBAR VERTEBRA Current Active Problems COPD (chronic obstructive pulmonary disease) (Acute) Fall (Acute) - Instructions Referrals: King Blackburn MD [Primary Care Provider] - - Home Medications Comprehensive Discharge Medication List: Ambulatory Orders Atorvastatin Ca [Lipitor] 20 mg PO DAILY 06/05/13 Albuterol Sulfate Inhaler - [Ventolin HFA Inhaler -] 1 - 2 inh PO QID PRN Aspirin [ASA -] 81 mg PO DAILY 04/13/16 Fluticasone/Salmeterol [Advair 250-50 Diskus] 1 each IH PRN 04/13/16 Acetaminophen [Tylenol .Regular Strength -] 325 mg PO Q3H PRN #14 tablet MDD 3 tab 04/09/19 Alendronate Sodium [Fosamax] 1 tab PO WEEKLY 04/09/19 Bimatoprost [Lumigan] 1 drop IO DAILY 04/09/19 Donepezil HCl 5 mg PO HS 04/09/19 Furosemide [Lasix] 20 mg PO DAILY 04/09/19 Ibuprofen [Motrin -] 600 mg PO TID PRN #14 tablet MDD 3 tab 04/09/19 Icosapent Ethyl [Vascepa] 1 gm PO BID 04/09/19 Magnesium Oxide [Mag-Oxide] 400 mg PO DAILY 04/09/19 Omeprazole Magnesium [Prilosec Otc] 40 mg PO DAILY 04/09/19 Polyethylene Glycol 3350 [Miralax 119 gm Btl -] 17 gm PO DAILY 04/09/19 Telmisartan 20 mg PO DAILY 04/09/19 Vitamin B Complex 1 each PO DAILY 04/09/19 Ascorbic Acid [Vitamin C] 1,000 mg PO DAILY 04/30/19 Finasteride 5 mg PO DAILY 04/30/19 Fluticasone/Vilanterol [Breo Ellipta 200-25 Mcg INH] 1 each IH BID 04/30/19 Folic Acid 1 mg PO DAILY 04/30/19 Hydrocodone/Acetaminophen [Hydrocodone-Acetamin 5-325 mg] 1 each PO BID PRN 06/14 Umeclidinium [place] [Incruse Ellipta] 1 puff IH DAILY 04/30/19
[2019-05-02] MEDS: ATORVASTATIN CA 20 MG TABLET (FP) PO SCH (21:59)
[2019-05-02] MEDS ORDERED: LATANOPROST 0.005% OPHTH SOLN 2.5ML BOTTLE OD SCH (22:00)
[2019-05-03] MEDS: oxyCODONE HCL 5 MG TABLET PO PRN (06:26)
[2019-05-03] MEDS: TIZANIDINE HCL 2 MG TABLET PO PRN (06:26)
[2019-05-03] MEDS: GABAPENTIN 100 MG CAPSULE PO SCH (06:26)
[2019-05-03 08:10] LABS: BASO % 0.4 % (0-2.0); EOS % 5.3 % (0-4.5); HEMATOCRIT 26.8 % (35.4-49); LYMPH % 23.3 % (8-40); MCH 31.8 pg (25.7-33.7); MCHC 33.6 g/dl (32.0-35.9); MEAN CELL VOLUME 94.6 fl (80-96); MEAN PLT VOLUME 7.5 fl (7.5-11.1); PLATELET COUNT 398 K/MM3 (134-434); RBC 2.83 M/mm3 (4.00-5.60); RDW 15.4 % (11.9-15.9)
[2019-05-03 08:40] LABS: BILIRUBIN,TOTAL 0.4 mg/dL (0.2-1); BLOOD UREA NITROGEN 33.2 mg/dL (7-18); CALCIUM 8.8 mg/dL (8.5-10.1); CREATININE 1.3 mg/dL (0.55-1.3); POTASSIUM 4.5 mmol/L (3.5-5.1)
--- NOTE | 2019-05-03 09:25 | PN ---
Progress Note (short form) - Note Progress Note: Resting in NAD. Appears comfortable. No acute events overnight. Intake & Output 04/30/19 05/01/19 05/02/19 05/03/19 23:59 23:59 23:59 23:59 Intake Total 300 900 Output Total 200 600 Balance 100 300 Weight 141 lb 3.2 oz Last Vital Signs Temp Pulse Resp BP Pulse Ox 98.6 F 75 20 104/58 L 97 05/03/19 05:52 05/03/19 05:52 05/03/19 05:52 05/03/19 05:52 05/02/19 21:00 Active Medications Aspirin (Asa -) 81 mg PO DAILY [facility] Last Admin: 05/02/19 09:56 Dose: 81 mg Atorvastatin Calcium (Lipitor -) 20 mg PO HS [facility] Last Admin: 05/02/19 21:59 Dose: 20 mg Finasteride (Proscar -) 5 mg PO DAILY [facility] Last Admin: 05/02/19 09:56 Dose: 5 mg Gabapentin (Neurontin -) 100 mg PO TID [facility] Last Admin: 05/03/19 06:26 Dose: 100 mg Heparin Sodium (Porcine) (Heparin -) 5,000 unit SQ BID [facility] Last Admin: 05/02/19 21:59 Dose: 5,000 unit Latanoprost (Xalatan 0.005% Eye Drops -) 1 drop OD [facility] Last Admin: 05/02/19 22:00 Dose: 1 drop Oxycodone HCl (Roxicodone -) 10 mg PO Q6H PRN PRN Reason: PAIN LEVEL 6-10 Last Admin: 05/03/19 06:26 Dose: 10 mg Polyethylene Glycol (Miralax (For Daily Use) -) 17 gm PO BID [facility] Last Admin: 05/02/19 21:59 Dose: 17 gm Tizanidine HCl (Tizanidine Hcl) 2 mg PO Q8H PRN PRN Reason: MUSCLE SPASMS Last Admin: 05/03/19 06:26 Dose: 2 mg Valsartan (Diovan -) 80 mg PO DAILY [facility] Last Admin: 05/02/19 09:56 Dose: 80 mg Constitutional: Yes: No Distress, Calm, Thin Eyes: Yes: Conjunctiva Clear, EOM Intact HENT: Yes: Atraumatic, Normocephalic Neck: Yes: Supple, Trachea Midline Cardiovascular: Yes: Regular Rate and Rhythm Respiratory: Yes: CTA Bilaterally. No: Rales, Rhonchi, SOB, SOB on Exertion, Stridor, Tachypnea, Wheezes ...Inspection: Yes: WNL ...Clubbing: No Gastrointestinal: Yes: Normal Bowel Sounds, Soft Renal/: Yes: WNL Musculoskeletal: Yes: Back Pain Extremities: Yes: WNL Edema: No Peripheral Pulses WNL: Yes Integumentary: Yes: WNL Neurological: Yes: WNL, Alert, Oriented ...Motor Strength: WNL Psychiatric: Yes: WNL, Alert, Oriented Labs: Laboratory Results - last 24 hr 05/03/19 05/03/19 07:47 07:47 WBC 7.0 RBC 2.83 L Hgb 9.0 L Hct 26.8 L MCV 94.6 MCH 31.8 MCHC 33.6 RDW 15.4 Plt Count 398 MPV 7.5 Absolute Neuts (auto) 4.1 Neutrophils % 59.0 Lymphocytes % 23.3 Monocytes % 12.0 H Eosinophils % 5.3 H D Basophils % 0.4 Nucleated RBC % 0 Sodium 132 L Potassium 4.5 Chloride 103 Carbon Dioxide 22 Anion Gap 7 L BUN 33.2 H Creatinine 1.3 Est GFR (CKD-EPI)AfAm 59.73 Est GFR (CKD-EPI)NonAf 51.53 Random Glucose 125 H Calcium 8.8 Total Bilirubin 0.4 AST 59 H ALT 61 Alkaline Phosphatase 83 Total Protein 7.0 Albumin 2.0 L Problem List - Problems (1) COPD (chronic obstructive pulmonary disease) Code(s): J44.9 - CHRONIC OBSTRUCTIVE PULMONARY DISEASE, UNSPECIFIED (2) Fall Code(s): W19.XXXA - UNSPECIFIED FALL, INITIAL ENCOUNTER (3) ASHD (arteriosclerotic heart disease) Code(s): I25.10 - ATHSCL HEART DISEASE OF [place] CORONARY ARTERY W/O ANG PCTRS (4) BPH (benign prostatic hyperplasia) Code(s): N40.0 - BENIGN PROSTATIC HYPERPLASIA WITHOUT LOWER URINRY TRACT SYMP (5) Burst fracture of lumbar vertebra Code(s): S32.001A - STABLE BURST FRACTURE OF UNSP LUMBAR VERTEBRA, INIT (6) HLD (hyperlipidemia) Code(s): E78.5 - HYPERLIPIDEMIA, UNSPECIFIED (7) HTN (hypertension) Code(s): I10 - ESSENTIAL (PRIMARY) HYPERTENSION (8) S/P CABG (coronary artery bypass graft) Code(s): Z95.1 - PRESENCE OF AORTOCORONARY BYPASS GRAFT Assessment/Plan Patient may use home meds if he remains admitted O2 as needed No smoking VTE prophylaxis There is no Pulmonary contraindication for discharge Dr Scherer Problem List - Problems (1) COPD (chronic obstructive pulmonary disease) Code(s): J44.9 - CHRONIC OBSTRUCTIVE PULMONARY DISEASE, UNSPECIFIED (2) Fall Code(s): W19.XXXA - UNSPECIFIED FALL, INITIAL ENCOUNTER (3) ASHD (arteriosclerotic heart disease) Code(s): I25.10 - ATHSCL HEART DISEASE OF [place] CORONARY ARTERY W/O ANG PCTRS (4) BPH (benign prostatic hyperplasia) Code(s): N40.0 - BENIGN PROSTATIC HYPERPLASIA WITHOUT LOWER URINRY TRACT SYMP (5) Burst fracture of lumbar vertebra Code(s): S32.001A - STABLE BURST FRACTURE OF UNSP LUMBAR VERTEBRA, INIT (6) HLD (hyperlipidemia) Code(s): E78.5 - HYPERLIPIDEMIA, UNSPECIFIED (7) HTN (hypertension) Code(s): I10 - ESSENTIAL (PRIMARY) HYPERTENSION (8) S/P CABG (coronary artery bypass graft) Code(s): Z95.1 - PRESENCE OF AORTOCORONARY BYPASS GRAFT
--- NOTE | 2019-05-03 09:49 | PN ---
Progress Note (short form) - Note Progress Note: NEUROSURGERY B hand, wrist, forearm, back, hips. No B/B dysfunction. Family at bedside PE: AF, VSS; up with brace and PT right now General- unremarkable CN- intact; Motor- 4 B UE/LE inc B DF/PF, pain limited; Sensation- intact LT; DTR- hyporeflexic; Back- tender LS junction/hips CT 04/09/19- L3 burst fx with central comminution with 25% compromise of canal; generalized osteopenia F/u LS spine x-ray - stable alignment and L3 burst fx morphology c/w 3 weeks ago Acute-subacute L3 burst fracture with no significant neurological deficits Rigid TLSO brace when OOB - should adequately cover L3 fx Have family bring in brace. If rigid brace and fitting well does not need new brace Neurosurgical intervention not recommended for L3 burst fx at this time given the underlying age and medical conditions as well as relatively intact neuro status Pain too diffuse to be just from the L3 fx Pain management if persistent pain Rehab Combination of neurontin, muscle relaxant and pain meds
[2019-05-03] MEDS: ASPIRIN 81 MG CHEWABLE TABLETS PO SCH (11:02)
[2019-05-03] MEDS: FINASTERIDE 5 MG TABLET (FP) PO SCH (11:02)
[2019-05-03] MEDS: HEPARIN NA (PORCINE) 5,000 UNITS/ML 1ML VIAL SQ SCH (11:03)
[2019-05-03] MEDS: POLYETHYLENE GLYCOL 3350 119 GM BTL PO SCH (11:03)
[2019-05-03] MEDS: VALSARTAN 80 MG TABLET (UD) PO SCH (11:03)
--- NOTE | 2019-05-03 11:55 | DS ---
Physical Examination Vital Signs: Vital Signs Temperature 98.6 F 05/03/19 05:52 Pulse Rate 75 05/03/19 05:52 Respiratory Rate 20 05/03/19 05:52 Blood Pressure 104/58 L 05/03/19 05:52 O2 Sat by Pulse Oximetry (%) 97 05/02/19 21:00 Constitutional: Yes: No Distress HENT: Yes: Atraumatic Neck: Yes: Supple Cardiovascular: Yes: Regular Rate and Rhythm Respiratory: Yes: CTA Bilaterally Gastrointestinal: Yes: Normal Bowel Sounds Extremities: Yes: WNL Neurological: Yes: Alert, Oriented Labs: CBC, BMP 05/03/19 07:47 05/03/19 07:47 Discharge Summary Problems reviewed: Yes Reason For Visit: BURST FRACTURE OF LUMBAR VERTEBRA Current Active Problems COPD (chronic obstructive pulmonary disease) (Acute) Fall (Acute) - Instructions Referrals: King Blackburn MD [Primary Care Provider] - Disposition: [facility] - Home Medications Comprehensive Discharge Medication List: Ambulatory Orders Atorvastatin Ca [Lipitor] 20 mg PO DAILY 06/05/13 Albuterol Sulfate Inhaler - [Ventolin HFA Inhaler -] 1 - 2 inh PO QID PRN Aspirin [ASA -] 81 mg PO DAILY 04/13/16 Fluticasone/Salmeterol [Advair 250-50 Diskus] 1 each IH PRN 04/13/16 Acetaminophen [Tylenol .Regular Strength -] 325 mg PO Q3H PRN #14 tablet MDD 3 tab 04/09/19 Alendronate Sodium [Fosamax] 1 tab PO WEEKLY 04/09/19 Bimatoprost [Lumigan] 1 drop IO DAILY 04/09/19 Donepezil HCl 5 mg PO HS 04/09/19 Furosemide [Lasix] 20 mg PO DAILY 04/09/19 Ibuprofen [Motrin -] 600 mg PO TID PRN #14 tablet MDD 3 tab 04/09/19 Icosapent Ethyl [Vascepa] 1 gm PO BID 04/09/19 Magnesium Oxide [Mag-Oxide] 400 mg PO DAILY 04/09/19 Omeprazole Magnesium [Prilosec Otc] 40 mg PO DAILY 04/09/19 Polyethylene Glycol 3350 [Miralax 119 gm Btl -] 17 gm PO DAILY 04/09/19 Telmisartan 20 mg PO DAILY 04/09/19 Vitamin B Complex 1 each PO DAILY 04/09/19 Ascorbic Acid [Vitamin C] 1,000 mg PO DAILY 04/30/19 Finasteride 5 mg PO DAILY 04/30/19 Fluticasone/Vilanterol [Breo Ellipta 200-25 Mcg INH] 1 each IH BID 04/30/19 Folic Acid 1 mg PO DAILY 04/30/19 Hydrocodone/Acetaminophen [Hydrocodone-Acetamin 5-325 mg] 1 each PO BID PRN 06/14 Umeclidinium [place] [Incruse Ellipta] 1 puff IH DAILY 04/30/19 dc snf
[2019-05-03 12:07] VITALS: BP 97/49; PULSE 82; TEMP 98
== END 2019-05-03 13:06 | DRG 552 ==
LOC: JER 09:54 → JERBED 16:03 → J6S 20:55
PROVIDERS: ADMIT Internal Medicine; ATTEND Internal Medicine
DX: S32.031A Stable burst fracture of third lumbar vertebra, initial encounter for closed fracture (principal); I10 Essential (primary) hypertension; I25.10 Atherosclerotic heart disease of native coronary artery without angina pectoris; J44.9 Chronic obstructive pulmonary disease, unspecified; E78.5 Hyperlipidemia, unspecified; N40.0 Benign prostatic hyperplasia without lower urinary tract symptoms; W19.XXXA Unspecified fall, initial encounter; Y92.9 Unspecified place or not applicable; Y99.9 Unspecified external cause status
CPT/HCPCS: 36415; 72100-TC-FY; 80053; 85025; 93005; 93010; 97116-GP; 97162-GP; 99284-25; J1644

== ENCOUNTER 2020-04-30 13:40 | Inpatient (IN) | payer OTHER ==
[2020-04-30] MEDS ORDERED: ACETAMINOPHEN 500 MG TABLET (FP) PO ONE (15:22)
[2020-04-30] MEDS ORDERED: ACETAMINOPHEN 325 MG TABLET (FP) ONE (15:36)
[2020-04-30 17:16] LABS: BASO % 0.5 % (0-2.0); EOS % 2.2 % (0-4.5); HEMATOCRIT 30.7 % (35.4-49); HEMOGLOBIN 10.3 GM/dL (11.7-16.9); LYMPH % 18.8 % (8-40); MCH 32.5 pg (25.7-33.7); MCHC 33.4 g/dl (32.0-35.9); MEAN CELL VOLUME 97.4 fl (80-96); MEAN PLT VOLUME 8.2 fl (7.5-11.1); MONO % 10.7 % (3.8-10.2); NEUT % 67.8 % (42.8-82.8); PLATELET COUNT 264 K/MM3 (134-434); RBC 3.15 M/mm3 (4.00-5.60); RDW 17.3 % (11.9-15.9); WHITE BLOOD COUNT 5.7 K/mm3 (4.0-10.0)
[2020-04-30 17:34] LABS: POTASSIUM 4.1 mmol/L (3.5-5.1)
[2020-04-30 17:37] LABS: ALBUMIN 2.3 g/dl (3.4-5.0); CALCIUM 8.3 mg/dL (8.5-10.1)
[2020-04-30 17:41] LABS: BILIRUBIN,TOTAL 0.4 mg/dL (0.2-1); CREATININE 0.9 mg/dL (0.55-1.3)
[2020-04-30 19:42] LABS: INR 1.07 (0.83-1.09); PROTHROMBIN TIME (PATIENT) 13.1 SEC (9.7-13.0)
[2020-04-30 19:45] LABS: ACTIVATED PTT 29.1 SECONDS (25.2-36.5)
[2020-05-01 01:48] VITALS: BMI 27.6
[2020-05-01] MEDS ORDERED: ALBUTEROL SO4 HFA INHALER IH PRN (04:58)
[2020-05-01] MEDS: NYSTATIN 500,000 UNITS/5 ML SUSPENSION PO SCH ×3 (06:55→17:46)
[2020-05-01] MEDS: LOSARTAN POTASSIUM 25 MG TABLET PO SCH (09:06)
[2020-05-01] MEDS: FINASTERIDE 5 MG TABLET (FP) PO SCH (09:06)
[2020-05-01] MEDS: PANTOPRAZOLE 40 MG TABLET PO SCH (09:06)
[2020-05-01] MEDS: ASCORBIC ACID 500 MG TABLET (FP) PO SCH (09:06)
[2020-05-01] MEDS: ENOXAPARIN NA (PORCINE) 40 MG/0.4 ML DISP.SYRIN SQ SCH (09:06)
[2020-05-01] MEDS: FOLIC ACID 1 MG TABLET (FP) PO SCH (09:06)
[2020-05-01] MEDS: ASPIRIN 81 MG CHEWABLE TABLETS PO SCH (09:06)
[2020-05-01] MEDS: TIOTROPIUM BROMIDE 2.5 MCG (SPIRIVA) RESPIMAT INHALER IH SCH (09:44)
[2020-05-01] MEDS: BUDESONIDE/FORMETEROL FUMARATE 80/4.5 mcg INHALER IH SCH ×2 (09:44→21:19)
[2020-05-01 12:25] LABS: MAGNESIUM 2.2 mg/dL (1.8-2.4)
[2020-05-01 12:28] LABS: PHOSPHOROUS 4.4 mg/dL (2.5-4.9)
[2020-05-01] MEDS: GABAPENTIN 100 MG CAPSULE PO SCH ×2 (13:03→21:19)
[2020-05-01] MEDS ORDERED: DOCUSATE SODIUM 100 MG CAPSULE (FP) PO ONE (14:00)
[2020-05-01] MEDS ORDERED: ACETAMINOPHEN 1000 MG/100 ML VIAL (NON FORMULARY) IVPB ONE ×2 (14:15→21:37)
[2020-05-01] MEDS: ATORVASTATIN CA 20 MG TABLET (FP) PO SCH (21:19)
[2020-05-01] MEDS: DONEPEZIL HCL 5 MG TABLET (FP) PO SCH (21:19)
[2020-05-02] MEDS: NYSTATIN 500,000 UNITS/5 ML SUSPENSION PO SCH ×6 (00:55→23:21)
[2020-05-02] MEDS ORDERED: PT OWN MED DRAWER 7, Y5N ONE (05:15)
[2020-05-02] MEDS: GABAPENTIN 100 MG CAPSULE PO SCH ×3 (06:08→21:07)
[2020-05-02] MEDS: FOLIC ACID 1 MG TABLET (FP) PO SCH (09:46)
[2020-05-02] MEDS: LOSARTAN POTASSIUM 25 MG TABLET PO SCH (09:46)
[2020-05-02] MEDS: ASPIRIN 81 MG CHEWABLE TABLETS PO SCH (09:46)
[2020-05-02] MEDS: ASCORBIC ACID 500 MG TABLET (FP) PO SCH (09:46)
[2020-05-02] MEDS: PANTOPRAZOLE 40 MG TABLET PO SCH (09:46)
[2020-05-02] MEDS: FINASTERIDE 5 MG TABLET (FP) PO SCH (09:46)
[2020-05-02] MEDS: BUDESONIDE/FORMETEROL FUMARATE 80/4.5 mcg INHALER IH SCH ×2 (09:47→21:07)
[2020-05-02] MEDS: ENOXAPARIN NA (PORCINE) 40 MG/0.4 ML DISP.SYRIN SQ SCH (09:47)
[2020-05-02] MEDS: TIOTROPIUM BROMIDE 2.5 MCG (SPIRIVA) RESPIMAT INHALER IH SCH (09:47)
[2020-05-02 10:09] LABS: HEMOGLOBIN 10.5 GM/dL (11.7-16.9); MCH 32.8 pg (25.7-33.7); MCHC 33.9 g/dl (32.0-35.9); MEAN CELL VOLUME 96.9 fl (80-96); MEAN PLT VOLUME 8.1 fl (7.5-11.1); PLATELET COUNT 300 K/MM3 (134-434); RDW 17.6 % (11.9-15.9); WHITE BLOOD COUNT 5.5 K/mm3 (4.0-10.0)
[2020-05-02 10:29] LABS: POTASSIUM 4.1 mmol/L (3.5-5.1)
[2020-05-02 10:35] LABS: CALCIUM 8.5 mg/dL (8.5-10.1)
[2020-05-02 10:36] LABS: ALBUMIN 2.1 g/dl (3.4-5.0); BLOOD UREA NITROGEN 15.8 mg/dL (7-18)
[2020-05-02 10:38] LABS: BILIRUBIN,TOTAL 0.4 mg/dL (0.2-1)
[2020-05-02 10:39] LABS: CREATININE 0.9 mg/dL (0.55-1.3); TOT PROT 5.9 g/dl (6.4-8.2)
[2020-05-02] MEDS: oxyCODONE HCL 5 MG TABLET PO PRN (11:58)
[2020-05-02] MEDS ORDERED: ACETAMINOPHEN 1000 MG/100 ML VIAL (NON FORMULARY) IVPB PRN (18:21)
[2020-05-02] MEDS: ATORVASTATIN CA 20 MG TABLET (FP) PO SCH (21:07)
[2020-05-02] MEDS: DONEPEZIL HCL 5 MG TABLET (FP) PO SCH (21:07)
[2020-05-03] MEDS: NYSTATIN 500,000 UNITS/5 ML SUSPENSION PO SCH ×4 (06:08→17:08)
[2020-05-03] MEDS: GABAPENTIN 100 MG CAPSULE PO SCH ×2 (06:08→14:22)
[2020-05-03] MEDS: oxyCODONE HCL 5 MG TABLET PO PRN (06:13)
[2020-05-03] MEDS ORDERED: PT OWN MED DRAWER 7, Y5N ONE (08:46)
[2020-05-03] MEDS: ENOXAPARIN NA (PORCINE) 40 MG/0.4 ML DISP.SYRIN SQ SCH (09:01)
[2020-05-03] MEDS: ASCORBIC ACID 500 MG TABLET (FP) PO SCH (09:02)
[2020-05-03] MEDS: FOLIC ACID 1 MG TABLET (FP) PO SCH (09:02)
[2020-05-03] MEDS: ASPIRIN 81 MG CHEWABLE TABLETS PO SCH (09:02)
[2020-05-03] MEDS: LOSARTAN POTASSIUM 25 MG TABLET PO SCH (09:02)
[2020-05-03] MEDS: FINASTERIDE 5 MG TABLET (FP) PO SCH (09:03)
[2020-05-03] MEDS: PANTOPRAZOLE 40 MG TABLET PO SCH (09:03)
[2020-05-03] MEDS: BUDESONIDE/FORMETEROL FUMARATE 80/4.5 mcg INHALER IH SCH (09:04)
[2020-05-03] MEDS: TIOTROPIUM BROMIDE 2.5 MCG (SPIRIVA) RESPIMAT INHALER IH SCH (09:05)
[2020-05-03 17:26] VITALS: BP 114/65; PULSE 92; TEMP 98.5
== END 2020-05-03 17:45 | DRG 552 ==
LOC: JER 13:40 → JERBED 18:06 → J6S 21:24 → J5S 05-01 10:29
PROVIDERS: ADMIT Internal Medicine; ATTEND Student in an Organized Health Care Education/Training Program
DX: S32.058A Other fracture of fifth lumbar vertebra, initial encounter for closed fracture (principal); S32.038A Other fracture of third lumbar vertebra, initial encounter for closed fracture; M81.0 Age-related osteoporosis without current pathological fracture; M54.9 Dorsalgia, unspecified; I10 Essential (primary) hypertension; N40.0 Benign prostatic hyperplasia without lower urinary tract symptoms; J44.9 Chronic obstructive pulmonary disease, unspecified; E78.5 Hyperlipidemia, unspecified; J45.909 Unspecified asthma, uncomplicated; M48.061 Spinal stenosis, lumbar region without neurogenic claudication; I25.10 Atherosclerotic heart disease of native coronary artery without angina pectoris; W18.39XA Other fall on same level, initial encounter; Y92.098 Other place in other non-institutional residence as the place of occurrence of the external cause; Z96.652 Presence of left artificial knee joint; Z96.643 Presence of artificial hip joint, bilateral; Z95.1 Presence of aortocoronary bypass graft; Z95.5 Presence of coronary angioplasty implant and graft
CPT/HCPCS: 36415; 71045-TC-FY; 72131-TC; 72192-TC; 73523-TC-FY; 80053; 82728; 83615; 83735; 84100; 85025; 85027; 85610; 85730; 86140; 86850; 86900; 86901; 93005; 93010; 97116-GP; 97161-GP; 99285-25; C9803; J0131; U0003

== ENCOUNTER 2020-12-16 05:15 | Emergency (ER) | payer OTHER ==
[2020-12-16 05:38] VITALS: BMI 27.4
[2020-12-16 06:52] LABS: HEMATOCRIT 33.6 % (35.4-49); HEMOGLOBIN 11.6 GM/dL (11.7-16.9); MCH 35.4 pg (25.7-33.7); MCHC 34.5 g/dl (32.0-35.9); MEAN CELL VOLUME 102.5 fl (80-96); MEAN PLT VOLUME 8.6 fl (7.5-11.1); PLATELET COUNT 257 10^3/uL (134-434); RBC 3.28 M/mm3 (4.00-5.60); RDW 15.7 % (11.9-15.9); WHITE BLOOD COUNT 6.2 K/mm3 (4.0-10.0)
[2020-12-16 07:07] LABS: ALBUMIN 2.7 g/dl (3.4-5.0); BLOOD UREA NITROGEN 12.6 mg/dL (7-18); CALCIUM 8.6 mg/dL (8.5-10.1)
[2020-12-16 07:11] LABS: CREATININE 0.9 mg/dL (0.55-1.3)
[2020-12-16 07:12] LABS: BILIRUBIN,TOTAL 0.5 mg/dL (0.2-1); TOT PROT 5.6 g/dl (6.4-8.2)
[2020-12-16 09:39] LABS: ANISOCYTOSIS 1+; MACROCYTOSIS 1+; PLATELET ESTIMATE NORMAL
[2020-12-16 11:50] LABS: EPI CELLS 6 /uL (0-25.1); HYALINE CASTS 0 /uL (0-3.1); URINE APPEARANCE CLOUDY; URINE BACTERIA 12 /uL (0-1359); URINE BILIRUBIN NEGATIVE (NEGATIVE); URINE COLOR YELLOW; URINE GLUCOSE (UA) NEGATIVE (NEGATIVE); URINE KETONE NEGATIVE (NEGATIVE); URINE LEUK ESTERASE NEGATIVE (NEGATIVE); URINE NITRITE NEGATIVE (NEGATIVE); URINE PROTEIN NEGATIVE (NEGATIVE); URINE RBC 228 /uL (0-23.9); URINE WBC 3 /uL (0-25.8)
[2020-12-16 14:04] VITALS: BP 147/62; PULSE 88; TEMP 98
== END 2020-12-16 14:56 | disposition home or self-care (01) ==
LOC: JER 05:15
DX: R33.9 Retention of urine, unspecified (principal); N20.0 Calculus of kidney
CPT/HCPCS: 36415; 72131-TC; 74177-TC; 80053; 81003; 85025; 87086; 99284-25; Q9967